=== PATIENT | male | born 1945 | race Caucasian/White ===

== ENCOUNTER 2017-12-21 12:50 | Emergency (ER) | payer MEDICARE ==
--- OUTSIDE RECORDS SUMMARY | 2017-12-21 13:07 | XMS REPORT ---
:1945 External Reference #:[id number] Author Organization [facility] Address [address], [address] [place] [address] Phone [phone] Care Team Providers Name Role Phone Mary Yuan NP Care Team Information Healthcare Consulting Manager Unavailable Mary Yuan, RENTAL CLERK Primary Care Physician Unavailable Payers Type Date Identification Numbers Payment Provider Subscriber Medicare Primary Policy Number: [id number] Medicare David Suh PayID: [id number] [address] [place] [address] Medicaid Policy Number: [id number] Medicaid David Suh PayID: [id number] [address] [place] [address] Problems Date Description Provider Status Onset: 01/11/2016 Schizophrenia Mary Yuan FNP Active Note: Document: 12/30/15 - Consult Mental Health Onset: 07/02/2016 Mixed hyperlipidemia Gregorio Hartley MD Active Onset: 02/22/2016 Hyperglycemia Mary Yuan FNP Active Note: A1C 6.2 02/2016 Onset: 12/31/2016 Actinic keratosis Mary Yuan FNP Active Note: Document: 01/16/17 - Consult Dermatology Onset: 12/31/2016 Seborrheic dermatitis Mary Yuan FNP Active Note: Document: 01/16/17 - Consult Dermatology Onset: 12/31/2016 Chronic ischemic heart disease Mary Yuan FNP Active Onset: 06/25/2016 Calculus of bile duct with Ethan Raymundo MD,FACS Resolved obstruction Resolved: 06/07/2017 Onset: 06/25/2016 Gallstone Ethan Raymundo MD,FACS Resolved Resolved: 06/07/2017 Onset: 07/18/2016 Gallbladder and bile duct calculi Ethan Raymundo MD,FACS Resolved Resolved: 06/07/2017 Family History Date Family Member(s) Problem(s) Comments Father due to Colon Cancer () - diagnosed age 88 Mother Heart Disease Mother Kidney Cancer Maternal Grandfather Stomach Cancer Social History Type Date Description Comments Marital Status Lives With Lives in retirement Home Environment Lives In Adult Home [place] Diet Patient follows no dietary no concentrated sweets restrictions Work Status Retired ETOH Use Denies alcohol use Smoking Patient denies history of smoking Recreational Drug Use Denies Drug Use Allergies, Adverse Reactions, Alerts Date Description Reaction Status Severity Comments 11/16/2015 NKDA active Medications Medication Date Status Form Strength Qnty SIG Indications Ordering Provider Clotrimazole 05/13/ Active Cream 1% 60uni apply to the 2017 ts toes of both Jenniferl feet twice a eigh, [employer]AY PAINTING MACHINE OPERATOR day, being sure to rub inbetween and under toes. Cerovite Senior 01/18/ Active Tablets 90tab Take 1 Cl2016 s Tablet By Jenniferl Mouth Daily eigh, [employer] MACHINE OPERATOR Aspirin Adult 09/25/ Active Tablets 81mg 90tab 1 by mouth R94.30 Clune, Low Dose 2017 s every day Jenniferl eigh, [employer]ING MACHINE OPERATOR Trazodone HCL 12/29/ Active Tablets 50mg take one Unknown 2015 tablet by mouth every day 1 hour before bedtime *as per Dr. Velasco's last note Tylenol Extra 12/27/ Active Tablets 500mg 50tab 2 tabs by Clvaughn, Strength 2016 s mouth every Jenniferl 4 hours as eigh, [employer] MACHINE OPERATOR needed for back pain Clozapine / Active Tablets 100mg 60tab 2 tabs by Dennis 0000 s mouth every MD Celine night at bedtime Escitalopram / Active Tablets 5mg 1 tab by Unknown Oxalate 0000 mouth every Docusate Sodium / Active Capsules 100mg 60cap 2 by mouth Clune, 0000 s every night Jenniferl at bedtime eigh, [employer] MACHINE OPERATOR Ziprasidone HCL / Active Capsules 20mg 1 cap by Unknown 0000 mouth twice a day Bisacodyl Ec / Active Tablets DR 5mg 30tab 1 tab by Clune, 0000 s mouth every Jenniferl night at eigh, [facility] bedtime Vesicare / Active Tablets 5mg 90tab 1 by mouth Clune, 0000 s every day Jenniferl eigh, [employer] MACHINE OPERATOR Simvastatin / Active Tablets 40mg 30tab 1 by mouth Clune, 0000 s every day Jenniferl eigh, [employer] MACHINE OPERATOR Pantoprazole / Active Tablets DR 20mg 7tabs 1 By Mouth Clune, Sodium 0000 Every Day Jenniferl *In Place Of eigh, [employer] PA[employer]ING MACHINE OPERATOR 40 MG - Decreasing To Possibly Discontinue Amoxicillin/Cla 10/15/ Hx Tablets 500-125mg 20tab one by mouth J18.9 Clvaughn vulanate 2018 - s twice a day Jenniferl Potassium 10/25/ x 10 days eigh, [facility] 2018 Pantoprazole 09/04/ Hx Tablets DR 20mg 30tab 1 by mouth Clune, Sodium 2018 - s every day Jenniferl 10/07/ *in place of eigh, [facility] 2018 40 mg - decreasing to possibly discontinue Ketoconazole 06/14/ Hx Cream 2% [facility]uni [facility], [facility] - [facility] areas of eigh, [facility] 2018 abdomen twice daily Econazole 06/03/ Hx Cream 1% 90gm apply thin L30.9 Clvaughn, Nitrate 2018 - layer twice Jenniferl 06/14/ daily to eigh, [facility] 2018 rash on abdomen Compression 09/25/ Hx 2unit 20-30mmhg. R60.9 Clune, Stockings 2017 - s apply Jenniferl 12/19/ compression eigh, [facility] 2018 stockings daily, remove in the evening. Ciclopirox 09/16/ Hx Solution 8% podiatry Clune, 2017 - Jenniferl 06/03/ eigh, [employer] M[employer]INE OPERATOR 2018 Furosemide 09/04/ Hx Tablets 20mg 90tab 1 tab by R60.9 Meghan 2017 - s mouth in the , Kedar 10/07/ morning Alanis Leavitt, 2018 FACC Potassium 09/04/ Hx Tablets ER 10Meq 90tab 1 by mouth R60.9 Meghan Chloride Julieta 2017 - s every day , Kedar ER 10/07/ Alanis Leavitt, 2018 FAC Pantoprazole 07/28/ Hx Tablets DR 40mg 30tab 1 by mouth Kwabena Sodium 2017 - s every day Jenniferl 09/04/ mdd 1 eigh, [employer] OPERATOR 2018 Amoxicillin/Cla 05/20/ Hx Tablets 875-125mg 10tab Every 12 Unknown vulanate 2017 - s Hours x 5 Potassium 05/25/ 2017 Triamcinolone 05/17/ Hx Cream 0.1% 60gm apply to RT L30.9 Kwabena Acetonide 2017 - abdomen Jenniferl 11/25/ twice a day eigh, [employer] OPERATOR 2018 for 10 days Multivitamin 03/26/ Hx Tablets 90tab 1 by mouth R63.4 Kwabena, Adult 2016 - s daily Jenniferl eigh, [employer] MACHINE OPERATOR 2018 Mucinex 03/09/ Hx Tablets ER 600mg 20tab one tab by R63.4 Kwabena, 2016 12HR s mouth twice Jenniferl a day (for eigh, [employer] PA[employer]ING MACHINE OPERATOR phlegm) use x 10 days Keflex 02/01/ Hx Capsules 500mg 20cap one capsules L03.116 Kwabena, 2016 - s by mouth Jenniferl 02/16/ every 12 eigh, [employer] MACHINE OPERATOR 2016 hours x 10 days Tylenol Extra 11/23/ Hx Tablets 500mg 50tab 2 tabs by M54.9 Kwabena, Strength 2016 - s mouth every Jenniferl 12/27/ 4 hours as eigh, [employer] MACHINE OPERATOR 2016 needed for back pain Benztropine / Hx Tablets 1mg 60tab 1 by mouth Kwabena, Mesylate 0000 - s twice a day Jenniferl eigh, [employer] MACHINE OPERATOR 2016 Ziprasidone HCL / Hx Capsules 20mg 60cap 1 cap by Clune, 0000 - s mouth twice Jenniferl 01/14/ a day eigh, [employer] MACHINE OPERATOR 2016 Namenda XR / Hx Caps ER 21mg 30cap 1 cap by Clune, 0000 - 24HR s mouth every Jenniferl 02/07/ day eigh, [employer] MACHINE OPERATOR 2016 Trazodone HCL / Hx Tablets 100mg 30tab 1 by mouth Clune, 0000 - s at bedtime Jenniferl , [employer] MACHINE OPERATOR 2016 Hydrocodone-Jabari / Hx Tablets 5-325mg A/D prn Unknown taminophen - 2017 Naftin / Hx Cream 2% podiatry Unknown 2017 Immunizations CPT Code Status Date Vaccine Lot # [id number] Given 06/03/2017 Pneumovax Injection [id number] 82110 Given 12/31/2016 Pneumococcal Conjugate Vaccine 13 Valent For [id number] Intramuscular Use 80304 Given 12/31/2016 Influenza Vaccine Split Virus Preservative Free Im [id number] Use Q2038 Given 12/28/2015 Influenza Vaccine (Fluzone) Age 3 And Older [id number] Vital Signs Date Vital Result Comment 12/19/2017 BP Systolic Sitting Left Arm 147 mmHg BP Diastolic Sitting Left Arm 92 mmHg Heart Rate 52 /min Respiratory Rate 18 /min Height 65.5 inches 5'5.50" Weight 193.00 lb BMI (Body Mass Index) 31.6 kg/m2 BSA (Body Surface Area) 1.96 m2 [place] body weight in kilograms 63 O2 % BldC Oximetry 97 % 11/25/2017 BP Systolic 118 mmHg BP Diastolic 72 mmHg Body Temperature 98.8 F Heart Rate 80 /min Respiratory Rate 18 /min Height 65.5 inches 5'5.50" Weight 190.00 lb BMI (Body Mass Index) 31.1 kg/m2 BSA (Body Surface Area) 1.95 m2 [place] body weight in kilograms 63 11/05/2017 BP Systolic Sitting Left Arm 112 mmHg BP Diastolic Sitting Left Arm 66 mmHg Heart Rate 72 /min Respiratory Rate 18 /min Height 65.5 inches 5'5.50" Weight 189.00 lb BMI (Body Mass Index) 31.0 kg/m2 BSA (Body Surface Area) 1.94 m2 [place] body weight in kilograms 63 10/15/2017 BP Systolic 98 mmHg BP Diastolic 58 mmHg Body Temperature 100.0 F Heart Rate 88 /min Respiratory Rate 20 /min Height 65.5 inches 5'5.50" Weight 198.00 lb BMI (Body Mass Index) 32.4 kg/m2 BSA (Body Surface Area) 1.98 m2 [place] body weight in kilograms 63 O2 % BldC Oximetry 91 % 10/07/2017 BP Systolic 116 mmHg BP Diastolic 68 mmHg Body Temperature 97.6 F Heart Rate 83 /min Respiratory Rate 20 /min Height 65.5 inches 5'5.50" Weight 194.00 lb BMI (Body Mass Index) 31.8 kg/m2 BSA (Body Surface Area) 1.96 m2 [place] body weight in kilograms 63 O2 % BldC Oximetry 95 % 09/04/2017 BP Systolic Sitting Left Arm 118 mmHg BP Diastolic Sitting Left Arm 76 mmHg Heart Rate 70 /min Respiratory Rate 18 /min Height 65.5 inches 5'5.50" Weight 191.00 lb BMI (Body Mass Index) 31.3 kg/m2 BSA (Body Surface Area) 1.95 m2 [place] body weight in kilograms 63 08/13/2017 BP Systolic Sitting Left Arm 114 mmHg BP Diastolic Sitting Left Arm 62 mmHg Heart Rate 59 /min Respiratory Rate 16 /min Height 65.5 inches 5'5.50" Weight 189.00 lb BMI (Body Mass Index) 31.0 kg/m2 BSA (Body Surface Area) 1.94 m2 [place] body weight in kilograms 63 06/03/2017 BP Systolic Sitting Left Arm 124 mmHg BP Diastolic Sitting Left Arm 72 mmHg Heart Rate 80 /min Respiratory Rate 18 /min Height 65.5 inches 5'5.50" Weight 190.00 lb BMI (Body Mass Index) 31.1 kg/m2 BSA (Body Surface Area) 1.95 m2 [place] body weight in kilograms 63 02/12/2017 BP Systolic Sitting Left Arm 124 mmHg BP Diastolic Sitting Left Arm 68 mmHg Heart Rate 72 /min Respiratory Rate 16 /min Height 65.5 inches 5'5.50" Weight 186.00 lb BMI (Body Mass Index) 30.5 kg/m2 BSA (Body Surface Area) 1.93 m2 [place] body weight in kilograms 63 12/31/2016 BP Systolic Sitting Left Arm 118 mmHg BP Diastolic Sitting Left Arm 72 mmHg Body Temperature 97.7 F Heart Rate 80 /min Respiratory Rate 18 /min Height 65.5 inches 5'5.50" Weight 191.00 lb BMI (Body Mass Index) 31.3 kg/m2 BSA (Body Surface Area) 1.95 m2 [place] body weight in kilograms 63 10/22/2016 BP Systolic Sitting Left Arm 126 mmHg BP Diastolic Sitting Left Arm 66 mmHg Heart Rate 56 /min Respiratory Rate 18 /min Height 65.5 inches 5'5.50" [place] body weight in kilograms 63 09/25/2016 BP Systolic Sitting Right Arm 108 mmHg BP Diastolic Sitting Right Arm 58 mmHg Heart Rate 55 /min Respiratory Rate 16 /min Height 65.5 inches 5'5.50" Weight 183.00 lb BMI (Body Mass Index) 30.0 kg/m2 BSA (Body Surface Area) 1.92 m2 [place] body weight in kilograms 63 09/11/2016 BP Systolic Sitting Left Arm 110 mmHg BP Diastolic Sitting Left Arm 62 mmHg Heart Rate 62 /min Respiratory Rate 16 /min Height 65.5 inches 5'5.50" Weight 178.00 lb BMI (Body Mass Index) 29.2 kg/m2 BSA (Body Surface Area) 1.89 m2 [place] body weight in kilograms 63 09/04/2016 BP Systolic Sitting Left Arm 120 mmHg BP Diastolic Sitting Left Arm 62 mmHg Heart Rate 56 /min Respiratory Rate 16 /min Height 65.5 inches 5'5.50" Weight 184.00 lb BMI (Body Mass Index) 30.2 kg/m2 BSA (Body Surface Area) 1.92 m2 [place] body weight in kilograms 63 08/27/2016 BP Systolic Sitting Left Arm 122 mmHg BP Diastolic Sitting Left Arm 74 mmHg Heart Rate 70 /min Respiratory Rate 18 /min Height 65.5 inches 5'5.50" Weight 177.00 lb BMI (Body Mass Index) 29.0 kg/m2 BSA (Body Surface Area) 1.89 m2 [place] body weight in kilograms 63 07/18/2016 BP Systolic Sitting Left Arm 118 mmHg BP Diastolic Sitting Left Arm 776 mmHg Body Temperature 97.6 F Heart Rate 80 /min Respiratory Rate 18 /min Height 65.5 inches 5'5.50"= Weight 172.12 lb BMI (Body Mass Index) 28.2 kg/m2 BSA (Body Surface Area) 1.87 m2 07/18/2016 BP Systolic 122 mmHg BP Diastolic 78 mmHg Height 65.5 inches 5'5.50"= Weight 177.00 lb BMI (Body Mass Index) 29.0 kg/m2 BSA (Body Surface Area) 1.89 m2 07/02/2016 BP Systolic Sitting Left Arm 114 mmHg BP Diastolic Sitting Left Arm 66 mmHg Heart Rate 55 /min Respiratory Rate 18 /min Height 65.5 inches 5'5.50"= Weight 177.00 lb BMI (Body Mass Index) 29.0 kg/m2 BSA (Body Surface Area) 1.89 m2 06/29/2016 BP Systolic Sitting Left Arm 120 mmHg BP Diastolic Sitting Left Arm 74 mmHg Heart Rate 72 /min Respiratory Rate 20 /min Height 65.5 inches = Weight 176.00 lb BMI (Body Mass Index) 28.8 kg/m2 BSA (Body Surface Area) 1.88 m2 [place] body weight in kilograms 63 06/25/2016 BP Systolic 110 mmHg BP Diastolic 70 mmHg Body Temperature 97.3 F Height 65.5 inches 5'5.50" Weight 174.00 lb BMI (Body Mass Index) 28.5 kg/m2 BSA (Body Surface Area) 1.88 m2 05/29/2016 BP Systolic Sitting Left Arm 120 mmHg BP Diastolic Sitting Left Arm 78 mmHg Heart Rate 63 /min Respiratory Rate 16 /min Height 65.5 inches 5'5.50" Weight 171.00 lb BMI (Body Mass Index) 28.0 kg/m2 BSA (Body Surface Area) 1.86 m2 05/17/2016 BP Systolic Sitting Left Arm 118 mmHg BP Diastolic Sitting Left Arm 70 mmHg Heart Rate 84 /min Respiratory Rate 18 /min Height 65.5 inches 5'5.50" Weight 177.00 lb BMI (Body Mass Index) 29.0 kg/m2 BSA (Body Surface Area) 1.89 m2 [place] body weight in kilograms 63 04/19/2016 BP Systolic Sitting Left Arm 118 mmHg BP Diastolic Sitting Left Arm 64 mmHg Heart Rate 79 /min Respiratory Rate 16 /min Height 65.5 inches 5'5.50" Weight 181.00 lb BMI (Body Mass Index) 29.7 kg/m2 BSA (Body Surface Area) 1.91 m2 04/16/2016 BP Systolic Sitting Left Arm 128 mmHg BP Diastolic Sitting Left Arm 70 mmHg Heart Rate 80 /min Respiratory Rate 18 /min Height 65.5 inches 5'5.50" Weight 183.00 lb BMI (Body Mass Index) 30.0 kg/m2 BSA (Body Surface Area) 1.92 m2 03/26/2016 BP Systolic 104 mmHg BP Diastolic 64 mmHg Body Temperature 97.5 F Heart Rate 86 /min Respiratory Rate 20 /min Height 65.5 inches 5'5.50" Weight 182.00 lb BMI (Body Mass Index) 29.8 kg/m2 BSA (Body Surface Area) 1.91 m2 [place] body weight in kilograms 63 O2 % BldC Oximetry 95 % 03/09/2016 BP Systolic Sitting Left Arm 124 mmHg BP Diastolic Sitting Left Arm 70 mmHg Body Temperature 97.7 F Height 65.5 inches 5'5.50" Weight 196.00 lb BMI (Body Mass Index) 32.1 kg/m2 BSA (Body Surface Area) 1.97 m2 [place] body weight in kilograms 63 02/08/2016 BP Systolic Sitting Left Arm 126 mmHg BP Diastolic Sitting Left Arm 74 mmHg Heart Rate 80 /min Respiratory Rate 18 /min Height 65.5 inches 5'5.50" Weight 198.00 lb BMI (Body Mass Index) 32.4 kg/m2 BSA (Body Surface Area) 1.98 m2 02/02/2016 BP Systolic Sitting Left Arm 118 mmHg BP Diastolic Sitting Left Arm 72 mmHg Body Temperature 97.4 F Heart Rate 72 /min Respiratory Rate 18 /min Height 65.5 inches 5'5.50" Weight 195.00 lb BMI (Body Mass Index) 32.0 kg/m2 BSA (Body Surface Area) 1.97 m2 11/24/2015 BP Systolic Sitting Left Arm 124 mmHg BP Diastolic Sitting Left Arm 72 mmHg Heart Rate 76 /min Respiratory Rate 18 /min Height 65.5 inches 5'5.50" Weight 187.00 lb BMI (Body Mass Index) 30.6 kg/m2 BSA (Body Surface Area) 1.93 m2 [place] body weight in kilograms 63 11/16/2015 BP Systolic Sitting Left Arm 134 mmHg BP Diastolic Sitting Left Arm 74 mmHg Body Temperature 98.0 F Heart Rate 60 /min Respiratory Rate 18 /min Height 65.5 inches 5'5.50" Weight 188.25 lb BMI (Body Mass Index) 30.8 kg/m2 BSA (Body Surface Area) 1.94 m2 [place] body weight in kilograms 63 Results Test Date Test Result H/L Range Note CBC 11/16/2017 White Blood Count 5.8 K/uL 3.4-10.5 1 Red Blood Count 3.95 M/uL Low 4.20-5.80 1 Hemoglobin 11.5 gm/dL Low 12.8-17.0 1 Hematocrit 36.4 % Low 38.0-48.0 1 Mean Cell Volume 92.2 fl 80.0-96.0 1 Mean Corpuscular HGB 29.1 pg 27.0-33.0 1 Mean Corpuscular HGB Conc 31.6 g/dL Low 31.7-36.0 1 Platelet Count 134 K/uL Low 155-360 1 Red Cell Distri Width %CV 12.8 % 11.6-15.8 1 Mean Platelet Volume 10.5 fL 6.6-10.6 1 Basic Metabolic Panel 11/16/2017 Glucose 106 mg/dL 74-106 1 BUN 9 mg/dL 7-18 1 Creatinine 1.0 mg/dL 0.6-1.3 1 Glom Filtration Rate, Estimate >60 mL/min >60 1 If >60 mL/min >60 1, 2 BUN/Creat 9.0 ratio 1 Sodium 146 mmol/L High 136-145 1 Potassium 4.0 mmol/L 3.5-5.1 1 Chloride 110 mmol/L High 98-107 1 Carbon Dioxide 32 mmol/L 21-32 1 Anion Gap 4 mEq/L Low 8-16 1 Calcium 8.4 mg/dL Low 8.5-10.1 1 Blood Culture 11/15/2017 Blood Culture Aerobic NO GROWTH: FINAL <SEE NOTE> 1, 3 Blood Culture Anaerobic NO GROWTH: FINAL <SEE NOTE> 1, 4 Blood Culture 11/15/2017 Blood Culture Aerobic NO GROWTH: FINAL <SEE NOTE> 1, 5 Blood Culture Anaerobic NO GROWTH: FINAL <SEE NOTE> 1, 6 CBS W/Automated Diff 11/15/2017 White Blood Count 6.9 K/uL 3.4-10.5 7 Red Blood Count 4.28 M/uL 4.20-5.80 7 Hemoglobin 12.6 gm/dL Low 12.8-17.0 7 Hematocrit 38.2 % 38.0-48.0 7 Mean Cell Volume 89.3 fl 80.0-96.0 7 Mean Corpuscular HGB 29.4 pg 27.0-33.0 7 Mean Corpuscular HGB Conc 33.0 g/dL 31.7-36.0 7 Platelet Count 144 K/uL Low 155-360 7 Red Cell Distri Width SD 40.3 fl 36-51 7 Red Cell Distri Width %CV 12.8 % 11.6-15.8 7 Mean Platelet Volume 10.2 fL 6.6-10.6 7 Neut% 74.3 % High 33.0-73.0 7 Lymph % 18.9 % Low 20.0-42.0 7 [place] % 5.5 % 0.0-10.0 7 Eo% 1.2 % 0.0-6.6 7 Bas% 0.1 % 0.0-1.1 7 Neut# 5.11 K/uL 1.8-7.0 7 Lymph # 1.30 K/uL 1.0-4.0 7 [place] # 0.38 K/uL 0.0-0.8 7 Eos # 0.08 K/uL 0.0-0.5 7 Baso # 0.01 K/uL 0.0-0.1 7 Ua RFX Micro & Culture II 11/15/2017 Urine Color YELLOW Yellow 7 Urine Clarity CLEAR Clear 7 Urine Glucose - Dipstick NEGATIVE mg/dL Negative 7 Urine Bilirubin - Dipstick NEGATIVE Negative 7 Urine Ketone NEGATIVE mg/dL Negative 7 Urine Specific [place] 1.010 1.010-1.030 7 Urine Blood NEGATIVE Negative 7 Urine PH 7.0 6.5-7.5 7 Urine Protein - Dipstick NEGATIVE mg/dL Negative 7 Urine Urobilinogen - Dipstick 0.2 E.U./dL 0.2-1.0 7 Urine Nitrite - Dipstick NEGATIVE Negative 7 Urine Leuk Esterase NEGATIVE Negative 7 Source: URINE, CLEAN CAT <SEE NOTE> 7, 8 CBS W/Automated Diff 11/14/2017 White Blood Count 6.3 K/uL 3.4-10.5 9 Red Blood Count 4.33 M/uL 4.20-5.80 9 Hemoglobin 12.8 gm/dL 12.8-17.0 9 Hematocrit 39.0 % 38.0-48.0 9 Mean Cell Volume 90.1 fl 80.0-96.0 9 Mean Corpuscular HGB 29.6 pg 27.0-33.0 9 Mean Corpuscular HGB Conc 32.8 g/dL 31.7-36.0 9 Platelet Count 132 K/uL Low 155-360 9 Red Cell Distri Width SD 41.0 fl 36-51 9 Red Cell Distri Width %CV 12.7 % 11.6-15.8 9 Mean Platelet Volume 11.1 fL High 6.6-10.6 9 Neut% 72.2 % 33.0-73.0 9 Lymph % 20.9 % 20.0-42.0 9 [place] % 4.9 % 0.0-10.0 9 Eo% 1.8 % 0.0-6.6 9 Bas% 0.2 % 0.0-1.1 9 Neut# 4.54 K/uL 1.8-7.0 9 Lymph # 1.31 K/uL 1.0-4.0 9 [place] # 0.31 K/uL 0.0-0.8 9 Eos # 0.11 K/uL 0.0-0.5 9 Baso # 0.01 K/uL 0.0-0.1 9 Glycohemoglobin A1c 11/05/2017 Glycohemoglobin (A1c) 6.1 % 4.2-6.3 10, 11 eAG 128 mg/dL 10 Laboratory test finding 07/05/2017 Troponin-I < 0.015 ng/mL 12, 13 Laboratory test finding 07/05/2017 Magnesium 1.9 mg/dL 1.8-2.4 12, 14 Laboratory test finding 07/05/2017 NT-proBNP 166.0 pg/mL High <125 12, 15 Comprehensive Metabolic Panel 07/05/2017 Glucose 98 mg/dL 74-106 12 BUN 14 mg/dL 7-18 12 Creatinine 1.1 mg/dL 0.6-1.3 12 Glom Filtration Rate, Estimate >60 mL/min >60 12 If >60 mL/min >60 12, 16 BUN/Creat 12.7 ratio 12 Sodium 143 mmol/L 136-145 12 Potassium 4.1 mmol/L 3.5-5.1 12 Chloride 104 mmol/L 98-107 12 Carbon Dioxide 34 mmol/L High 21-32 12 Anion Gap 5 mEq/L Low 8-16 12 Calcium 8.9 mg/dL 8.5-10.1 12 Total Protein 6.3 g/dL Low 6.4-8.2 12 Albumin 3.3 g/dL Low 3.4-5.0 12 Globulin 3.0 g/dL 1.9-4.3 12 Alb/Glob 1.1 ratio 12 Bilirubin,Total 0.2 mg/dL 0.2-1.0 12 Sgot/Ast 37 U/L 15-37 12 SGPT/Alt 57 U/L 12-78 12 Alkaline Phosphatase 173 U/L High 45-117 12 Laboratory test finding 07/05/2017 CK 102 U/L 39-308 12 Troponin-I < 0.015 ng/mL 12, 17 CBS W/Automated Diff 07/05/2017 White Blood Count 4.6 K/uL 3.4-10.5 12 Red Blood Count 4.05 M/uL Low 4.20-5.80 12 Hemoglobin 12.1 gm/dL Low 12.8-17.0 12 Hematocrit 36.5 % Low 38.0-48.0 12 Mean Cell Volume 90.1 fl 80.0-96.0 12 Mean Corpuscular HGB 29.9 pg 27.0-33.0 12 Mean Corpuscular HGB Conc 33.2 g/dL 31.7-36.0 12 Platelet Count 197 K/uL 155-360 12 Red Cell Distri Width SD 39.3 fl 36-51 12 Red Cell Distri Width %CV 12.4 % 11.6-15.8 12 Mean Platelet Volume 10.4 fL 6.6-10.6 12 Neut% 57.3 % 33.0-73.0 12 Lymph % 34.8 % 20.0-42.0 12 [place] % 5.8 % 0.0-10.0 12 Eo% 1.9 % 0.0-6.6 12 Bas% 0.2 % 0.0-1.1 12 Neut# 2.65 K/uL 1.8-7.0 12 Lymph # 1.61 K/uL 1.0-4.0 12 [place] # 0.27 K/uL 0.0-0.8 12 Eos # 0.09 K/uL 0.0-0.5 12 Baso # 0.01 K/uL 0.0-0.1 12 Laboratory test finding 07/05/2017 Slide Review (SEE NOTE) 12, 18 Aot Request 07/05/2017 Aot Request Test(s) added 12, 19 Tests to be added: magnesium, pleas <SEE NOTE> 12, 20 LDL Cholesterol Profile 06/03/2017 Cholesterol 152 mg/dL <200 21, 22 Triglycerides 256 mg/dL High <150 21, 23 HDL Cholesterol 49 mg/dL >40 21, 24 LDL-Cholesterol 52 mg/dL < 100 21, 25 Comprehensive Metabolic Panel 06/03/2017 Glucose 104 mg/dL 74-106 21 BUN 16 mg/dL 7-18 21 Creatinine 1.1 mg/dL 0.6-1.3 21 Glom Filtration Rate, Estimate >60 mL/min >60 21 If >60 mL/min >60 21, 26 BUN/Creat 14.5 ratio 21 Sodium 141 mmol/L 136-145 21 Potassium 4.2 mmol/L 3.5-5.1 21 Chloride 108 mmol/L High 98-107 21 Carbon Dioxide 30 mmol/L 21-32 21 Anion Gap 3 mEq/L Low 8-16 21 Calcium 8.9 mg/dL 8.5-10.1 21 Total Protein 6.5 g/dL 6.4-8.2 21 Albumin 3.7 g/dL 3.4-5.0 21 Globulin 2.8 g/dL 1.9-4.3 21 Alb/Glob 1.3 ratio 21 Bilirubin,Total 0.3 mg/dL 0.2-1.0 21 Sgot/Ast 43 U/L High 15-37 21 SGPT/Alt 50 U/L 12-78 21 Alkaline Phosphatase 130 U/L High 45-117 21 CBS W/Automated Diff 06/03/2017 White Blood Count 6.7 K/uL 3.4-10.5 21 Red Blood Count 4.57 M/uL 4.20-5.80 21 Hemoglobin 13.5 gm/dL 12.8-17.0 21 Hematocrit 40.6 % 38.0-48.0 21 Mean Cell Volume 88.8 fl 80.0-96.0 21 Mean Corpuscular HGB 29.5 pg 27.0-33.0 21 Mean Corpuscular HGB Conc 33.3 g/dL 31.7-36.0 21 Platelet Count 175 K/uL 155-360 21 Red Cell Distri Width SD 40.9 fl 36-51 21 Red Cell Distri Width %CV 12.9 % 11.6-15.8 21 Mean Platelet Volume 11.1 fL High 6.6-10.6 21 Neut% 67.0 % 33.0-73.0 21 Lymph % 25.1 % 20.0-42.0 21 [place] % 6.3 % 0.0-10.0 21 Eo% 1.3 % 0.0-6.6 21 Bas% 0.3 % 0.0-1.1 21 Neut# 4.50 K/uL 1.8-7.0 21 Lymph # 1.69 K/uL 1.0-4.0 21 [place] # 0.42 K/uL 0.0-0.8 21 Eos # 0.09 K/uL 0.0-0.5 21 Baso # 0.02 K/uL 0.0-0.1 21 Glycohemoglobin A1c 06/03/2017 Glycohemoglobin (A1c) 6.1 % 4.2-6.3 21, 27 eAG 128 mg/dL 21 Laboratory test finding 06/03/2017 Thyroid Stim Hormone 1.31 uIU/mL 0.30- 4.20 21 Basic Metabolic Panel 02/12/2017 Glucose 109 mg/dL High 74-106 28 BUN 17 mg/dL 7-18 28 Creatinine 1.0 mg/dL 0.6-1.3 28 Glom Filtration Rate, Estimate >60 mL/min >60 28 If >60 mL/min >60 28, 29 BUN/Creat 17.0 ratio 28 Sodium 143 mmol/L 136-145 28 Potassium 3.9 mmol/L 3.5-5.1 28 Chloride 105 mmol/L 98-107 28 Carbon Dioxide 33 mmol/L High 21-32 28 Anion Gap 5 mEq/L Low 8-16 28 Calcium 9.4 mg/dL 8.5-10.1 28 Glycohemoglobin A1c 10/24/2016 Glycohemoglobin (A1c) 5.9 % 4.2-6.3 30, 31 eAG 123 mg/dL 30 Basic Metabolic Panel 10/17/2016 Glucose 243 mg/dL High 74-106 32 BUN 19 mg/dL High 7-18 32 Creatinine 1.1 mg/dL 0.6-1.3 32 Glom Filtration Rate, Estimate >60 mL/min >60 32 If >60 mL/min >60 32, 33 BUN/Creat 17.2 ratio 32 Sodium 139 mmol/L 136-145 32 Potassium 3.5 mmol/L 3.5-5.1 32 Chloride 102 mmol/L 98-107 32 Carbon Dioxide 31 mmol/L 21-32 32 Anion Gap 6 mEq/L Low 8-16 32 Calcium 8.5 mg/dL 8.5-10.1 32 Laboratory test finding 10/17/2016 Magnesium 1.9 mg/dL 1.8-2.4 32 Basic Metabolic Panel 09/05/2016 Glucose 99 mg/dL 74-106 32 BUN 16 mg/dL 7-18 32 Creatinine 0.9 mg/dL 0.6-1.3 32 Glom Filtration Rate, Estimate >60 mL/min >60 32 If >60 mL/min >60 32, 34 BUN/Creat 17.7 ratio 32 Sodium 146 mmol/L High 136-145 32 Potassium 3.9 mmol/L 3.5-5.1 32 Chloride 108 mmol/L High 98-107 32 Carbon Dioxide 34 mmol/L High 21-32 32 Anion Gap 4 mEq/L Low 8-16 32 Calcium 9.2 mg/dL 8.5-10.1 32 Laboratory test finding 09/05/2016 Magnesium 1.8 mg/dL 1.8-2.4 32 Ua RFX Micro & Culture II 07/07/2016 Urine Color YELLOW Yellow 35 Urine Clarity CLEAR Clear 35 Urine Glucose - Dipstick NEGATIVE mg/dL Negative 35 Urine Bilirubin - Dipstick NEGATIVE Negative 35 Urine [place] NEGATIVE mg/dL Negative 35 Urine Specific [place] 1.010 1.010-1.030 35 Urine Blood NEGATIVE Negative 35 Urine PH 7.0 6.5-7.5 35 Urine Protein - Dipstick NEGATIVE mg/dL Negative 35 Urine Urobilinogen - Dipstick 2.0 E.U./dL High 0.2-1.0 35 Urine Nitrite - Dipstick NEGATIVE Negative 35 Urine Leuk Esterase NEGATIVE Negative 35 Source: URINE, CLEAN CAT <SEE NOTE> 35, 36 CBS W/Automated Diff 07/07/2016 White Blood Count 6.7 K/uL 3.4-10.5 35 Red Blood Count 4.09 M/uL Low 4.20-5.80 35 Hemoglobin 12.0 gm/dL Low 12.8-17.0 35 Hematocrit 36.7 % Low 38.0-48.0 35 Mean Cell Volume 89.7 fl 80.0-96.0 35 Mean Corpuscular HGB 29.3 pg 27.0-33.0 35 Mean Corpuscular HGB Conc 32.7 g/dL 31.7-36.0 35 Platelet Count 154 K/uL 150-400 35 Red Cell Distri Width SD 44.1 fl 36-51 35 Red Cell Distri Width %CV 13.8 % 11.6-15.8 35 Mean Platelet Volume 11.3 fL High 6.6-10.6 35 Neut% 84.0 % High 33.0-73.0 35 Lymph % 9.4 % Low 20.0-42.0 35 [place] % 6.0 % 0.0-10.0 35 Eo% 0.6 % 0.0-6.6 35 Bas% 0.0 % 0.0-1.1 35 Neut# 5.65 K/uL 1.8-7.0 35 Lymph # 0.63 K/uL Low 1.0-4.0 35 [place] # 0.40 K/uL 0.0-0.8 35 Eos # 0.04 K/uL 0.0-0.5 35 Baso # 0.00 K/uL 0.0-0.1 35 Comprehensive Metabolic Panel 07/07/2016 Glucose 192 mg/dL High 74-106 35 BUN 12 mg/dL 7-18 35 Creatinine 1.0 mg/dL 0.6-1.3 35 Glom Filtration Rate, Estimate >60 mL/min >60 35 If >60 mL/min >60 35, 37 BUN/Creat 12.0 ratio 35 Sodium 141 mmol/L 136-145 35 Potassium 3.8 mmol/L 3.5-5.1 35 Chloride 106 mmol/L 98-107 35 Carbon Dioxide 30 mmol/L 21-32 35 Anion Gap 5 mEq/L Low 8-16 35 Calcium 8.3 mg/dL Low 8.5-10.1 35 Total Protein 6.0 g/dL Low 6.4-8.2 35 Albumin 2.9 g/dL Low 3.4-5.0 35 Globulin 3.1 g/dL 1.9-4.3 35 Alb/Glob 0.9 ratio 35 Bilirubin,Total 0.6 mg/dL 0.2-1.0 35 Sgot/Ast 27 U/L 15-37 35 SGPT/Alt 43 U/L 12-78 35 Alkaline Phosphatase 149 U/L High 45-117 35 CBC 07/05/2016 White Blood Count 9.3 K/uL 3.4-10.5 38 Red Blood Count 4.20 M/uL 4.20-5.80 38 Hemoglobin 12.2 gm/dL Low 12.8-17.0 38 Hematocrit 37.4 % Low 38.0-48.0 38 Mean Cell Volume 89.0 fl 80.0-96.0 38 Mean Corpuscular HGB 29.0 pg 27.0-33.0 38 Mean Corpuscular HGB Conc 32.6 g/dL 31.7-36.0 38 Platelet Count 176 K/uL 150-400 38 Red Cell Distri Width %CV 13.8 % 11.6-15.8 38 Mean Platelet Volume 11.2 fL High 6.6-10.6 38 CBS W/Automated Diff 07/05/2016 Red Cell Distri Width SD 43.6 fl 36-51 38 Neut% 85.2 % High 33.0-73.0 38 Lymph % 10.2 % Low 20.0-42.0 38 [place] % 4.5 % 0.0-10.0 38 Eo% 0.1 % 0.0-6.6 38 Bas% 0.0 % 0.0-1.1 38 Neut# 7.90 K/uL High 1.8-7.0 38 Lymph # 0.95 K/uL Low 1.0-4.0 38 [place] # 0.42 K/uL 0.0-0.8 38 Eos # 0.01 K/uL 0.0-0.5 38 Baso # 0.00 K/uL 0.0-0.1 38 Comprehensive Metabolic Panel 07/05/2016 Glucose 123 mg/dL High 74-106 38 BUN 12 mg/dL 7-18 38 Creatinine 1.1 mg/dL 0.6-1.3 38 Glom Filtration Rate, Estimate >60 mL/min >60 38 If >60 mL/min >60 38, 39 BUN/Creat 10.9 ratio 38 Sodium 144 mmol/L 136-145 38 Potassium 4.4 mmol/L 3.5-5.1 38 Chloride 109 mmol/L High 98-107 38 Carbon Dioxide 27 mmol/L 21-32 38 Anion Gap 8 mEq/L 8-16 38 Calcium 8.1 mg/dL Low 8.5-10.1 38 Total Protein 5.4 g/dL Low 6.4-8.2 38 Albumin 2.9 g/dL Low 3.4-5.0 38 Globulin 2.5 g/dL 1.9-4.3 38 Alb/Glob 1.2 ratio 38 Bilirubin,Total 0.6 mg/dL 0.2-1.0 38 Sgot/Ast 44 U/L High 15-37 38 SGPT/Alt 46 U/L 12-78 38 Alkaline Phosphatase 121 U/L High 45-117 38 CBC 07/04/2016 White Blood Count 7.3 K/uL 3.4-10.5 38 Red Blood Count 4.33 M/uL 4.20-5.80 38 Hemoglobin 12.6 gm/dL Low 12.8-17.0 38 Hematocrit 38.6 % 38.0-48.0 38 Mean Cell Volume 89.1 fl 80.0-96.0 38 Mean Corpuscular HGB 29.1 pg 27.0-33.0 38 Mean Corpuscular HGB Conc 32.6 g/dL 31.7-36.0 38 Platelet Count 178 K/uL 150-400 38 Red Cell Distri Width %CV 13.6 % 11.6-15.8 38 Mean Platelet Volume 10.8 fL High 6.6-10.6 38 Comprehensive Metabolic Panel 07/04/2016 Glucose 138 mg/dL High 74-106 38 BUN 14 mg/dL 7-18 38 Creatinine 1.1 mg/dL 0.6-1.3 38 Glom Filtration Rate, Estimate >60 mL/min >60 38 If >60 mL/min >60 38, 40 BUN/Creat 12.7 ratio 38 Sodium 145 mmol/L 136-145 38 Potassium 4.1 mmol/L 3.5-5.1 38 Chloride 109 mmol/L High 98-107 38 Carbon Dioxide 28 mmol/L 21-32 38 Anion Gap 8 mEq/L 8-16 38 Calcium 8.3 mg/dL Low 8.5-10.1 38 Total Protein 5.9 g/dL Low 6.4-8.2 38 Albumin 3.4 g/dL 3.4-5.0 38 Globulin 2.5 g/dL 1.9-4.3 38 Alb/Glob 1.4 ratio 38 Bilirubin,Total 0.3 mg/dL 0.2-1.0 38 Sgot/Ast 27 U/L 15-37 38 SGPT/Alt 35 U/L 12-78 38 Alkaline Phosphatase 136 U/L High 45-117 38 Laboratory test 07/04/2016 C-Reactive Protein,Quant < 3.0 mg/L <3.0 38 finding Blood Culture 07/04/2016 Blood Culture Aerobic NO GROWTH: 38, 41 FINAL <SEE NOTE> Blood Culture Anaerobic NO GROWTH: FINAL <SEE NOTE> 38, 42 CBC 07/02/2016 White Blood Count 5.4 K/uL 3.4-10.5 43 Red Blood Count 4.55 M/uL 4.20-5.80 43 Hemoglobin 13.3 gm/dL 12.8-17.0 43 Hematocrit 40.5 % 38.0-48.0 43 Mean Cell Volume 89.0 fl 80.0-96.0 43 Mean Corpuscular HGB 29.2 pg 27.0-33.0 43 Mean Corpuscular HGB Conc 32.8 g/dL 31.7-36.0 43 Platelet Count 228 K/uL 150-400 43 Red Cell Distri Width %CV 13.8 % 11.6-15.8 43 Mean Platelet Volume 11.0 fL High 6.6-10.6 43 Protime 07/02/2016 Protime 13.3 seconds 12.0-14.4 43 Inr 1.0 0.9-1.1 43, 44 Laboratory test 07/02/2016 Act Partial 27.3 seconds 23.4-35.0 43, 45 finding Thrombo Time Liver Function Tests 07/02/2016 Total Protein 6.2 g/dL Low 6.4-8.2 43 Albumin 3.7 g/dL 3.4-5.0 43 Globulin 2.5 g/dL 1.9-4.3 43 Alb/Glob 1.5 ratio 43 Bilirubin,Total 0.4 mg/dL 0.2-1.0 43 Bilirubin,Direct 0.1 mg/dL 0.0-0.2 43 Bilirubin,Indirect 0.3 mg/dL 0.0-0.9 43 Sgot/Ast 17 U/L 15-37 43 SGPT/Alt 38 U/L 12-78 43 Alkaline Phosphatase 166 U/L High 45-117 43 Basic Metabolic Panel 07/02/2016 Glucose 119 mg/dL High 74-106 43 BUN 10 mg/dL 7-18 43 Creatinine 1.1 mg/dL 0.6-1.3 43 Glom Filtration Rate, Estimate >60 mL/min >60 43 If >60 mL/min >60 43, 46 BUN/Creat 9.0 ratio 43 Sodium 145 mmol/L 136-145 43 Potassium 4.1 mmol/L 3.5-5.1 43 Chloride 108 mmol/L High 98-107 43 Carbon Dioxide 30 mmol/L 21-32 43 Anion Gap 7 mEq/L Low 8-16 43 Calcium 8.7 mg/dL 8.5-10.1 43 CBS W/Automated Diff 06/21/2016 White Blood Count 4.3 K/uL 3.4-10.5 47 Red Blood Count 4.59 M/uL 4.20-5.80 47 Hemoglobin 13.2 gm/dL 12.8-17.0 47 Hematocrit 39.4 % 38.0-48.0 47 Mean Cell Volume 85.8 fl 80.0-96.0 47 Mean Corpuscular HGB 28.8 pg 27.0-33.0 47 Mean Corpuscular HGB Conc 33.5 g/dL 31.7-36.0 47 Platelet Count 147 K/uL Low 150-400 47 Red Cell Distri Width SD 41.5 fl 36-51 47 Red Cell Distri Width %CV 13.4 % 11.6-15.8 47 Mean Platelet Volume 10.5 fL 6.6-10.6 47 Neut% 57.8 % 33.0-73.0 47 Lymph % 31.8 % 20.0-42.0 47 [place] % 6.7 % 0.0-10.0 47 Eo% 3.2 % 0.0-6.6 47 Bas% 0.5 % 0.0-1.1 47 Neut# 2.51 K/uL 1.8-7.0 47 Lymph # 1.38 K/uL 1.0-4.0 47 [place] # 0.29 K/uL 0.0-0.8 47 Eos # 0.14 K/uL 0.0-0.5 47 Baso # 0.02 K/uL 0.0-0.1 47 Laboratory test finding 06/21/2016 Slide Review . 47, 48 RBC Morphology Only 06/21/2016 Poikilocytosis 0-1+ 47 Anisocytosis 0-1+ 47 Microcytosis 0-1+ 47 Elliptocytes 0-1+ 47 [place] Cells 0-1+ 47 CBC 06/15/2016 White Blood Count 5.6 K/uL 3.4-10.5 47 Red Blood Count 5.38 M/uL 4.20-5.80 47 Hemoglobin 15.4 gm/dL 12.8-17.0 47 Hematocrit 46.4 % 38.0-48.0 47 Mean Cell Volume 86.2 fl 80.0-96.0 47 Mean Corpuscular HGB 28.6 pg 27.0-33.0 47 Mean Corpuscular HGB Conc 33.2 g/dL 31.7-36.0 47 Platelet Count 191 K/uL 150-400 47 Red Cell Distri Width %CV 13.3 % 11.6-15.8 47 Mean Platelet Volume 10.7 fL High 6.6-10.6 47 Basic Metabolic Panel 06/15/2016 Glucose 98 mg/dL 74-106 47 BUN 11 mg/dL 7-18 47 Creatinine 0.9 mg/dL 0.6-1.3 47 Glom Filtration Rate, Estimate >60 mL/min >60 47 If >60 mL/min >60 47, 49 BUN/Creat 12.2 ratio 47 Sodium 141 mmol/L 136-145 47 Potassium 4.0 mmol/L 3.5-5.1 47 Chloride 103 mmol/L 98-107 47 Carbon Dioxide 31 mmol/L 21-32 47 Anion Gap 7 mEq/L Low 8-16 47 Calcium 9.2 mg/dL 8.5-10.1 47 LDL Cholesterol Profile 06/09/2016 Cholesterol 134 mg/dL <200 47, 50 Triglycerides 38 mg/dL <150 47, 51 HDL Cholesterol 79 mg/dL >40 47, 52 LDL-Cholesterol 47 mg/dL < 100 47, 53 Laboratory test 06/09/2016 Treponema Antibody Nonreactive Nonreactive 47 , 54 finding [place] Ua RFX Micro & 06/08/2016 Urine Color YELLOW Yellow 55 Culture II Urine Clarity CLEAR Clear 55 Urine Glucose - Dipstick NEGATIVE mg/dL Negative 55 Urine Bilirubin - Dipstick NEGATIVE Negative 55 Urine [place] NEGATIVE mg/dL Negative 55 Urine Specific [place] 1.015 1.010-1.030 55 Urine Blood NEGATIVE Negative 55 Urine PH 5.5 Low 6.5-7.5 55 Urine Protein - Dipstick NEGATIVE mg/dL Negative 55 Urine Urobilinogen - Dipstick 0.2 E.U./dL 0.2-1.0 55 Urine Nitrite - Dipstick NEGATIVE Negative 55 Urine Leuk Esterase NEGATIVE Negative 55 Source: URINE, CLEAN CAT <SEE NOTE> 55, 56 Drugs Of Abuse-Urine Screen 7 06/08/2016 Amphetamines (Urine) Negative 55 Barbiturates (Urine) Negative 55 Benzodiazepines (Urine) Negative 55 Cannabinoids (Urine) Negative 55 Cocaine Metabolite (Urine) Negative 55 Methadone (Urine) Negative 55 Opiates (Urine) Negative 55 Urine Cutoffs * 55, 57 CBS W/Automated Diff 06/08/2016 White Blood Count 5.5 K/uL 3.4-10.5 55 Red Blood Count 4.91 M/uL 4.20-5.80 55 Hemoglobin 14.2 gm/dL 12.8-17.0 55 Hematocrit 42.5 % 38.0-48.0 55 Mean Cell Volume 86.6 fl 80.0-96.0 55 Mean Corpuscular HGB 28.9 pg 27.0-33.0 55 Mean Corpuscular HGB Conc 33.4 g/dL 31.7-36.0 55 Platelet Count 146 K/uL Low 150-400 55 Red Cell Distri Width SD 42.2 fl 36-51 55 Red Cell Distri Width %CV 13.6 % 11.6-15.8 55 Mean Platelet Volume 11.5 fL High 6.6-10.6 55 Neut% 71.4 % 33.0-73.0 55 Lymph % 15.9 % Low 20.0-42.0 55 [place] % 9.6 % 0.0-10.0 55 Eo% 2.9 % 0.0-6.6 55 Bas% 0.2 % 0.0-1.1 55 Neut# 3.96 K/uL 1.8-7.0 55 Lymph # 0.88 K/uL Low 1.0-4.0 55 [place] # 0.53 K/uL 0.0-0.8 55 Eos # 0.16 K/uL 0.0-0.5 55 Baso # 0.01 K/uL 0.0-0.1 55 Laboratory test finding 06/08/2016 Ethyl Alcohol < 3.0 mg/dL 55 Comprehensive Metabolic Panel 06/08/2016 Glucose 98 mg/dL 74-106 55 BUN 7 mg/dL 7-18 55 Creatinine 1.0 mg/dL 0.6-1.3 55 Glom Filtration Rate, Estimate >60 mL/min >60 55 If >60 mL/min >60 55, 58 BUN/Creat 7.0 ratio 55 Sodium 143 mmol/L 136-145 55 Potassium 3.8 mmol/L 3.5-5.1 55 Chloride 106 mmol/L 98-107 55 Carbon Dioxide 31 mmol/L 21-32 55 Anion Gap 6 mEq/L Low 8-16 55 Calcium 9.1 mg/dL 8.5-10.1 55 Total Protein 6.5 g/dL 6.4-8.2 55 Albumin 3.7 g/dL 3.4-5.0 55 Globulin 2.8 g/dL 1.9-4.3 55 Alb/Glob 1.3 ratio 55 Bilirubin,Total 0.4 mg/dL 0.2-1.0 55 Sgot/Ast 30 U/L 15-37 55 SGPT/Alt 43 U/L 12-78 55 Alkaline Phosphatase 147 U/L High 45-117 55 Laboratory test finding 06/08/2016 Thyroid Stim Hormone 0.55 uIU/mL 0.30- 4.20 55 Laboratory test finding 06/05/2016 Prealbumin 18.0 mg/dL Low 20.0-40.0 Lipid Panel 06/05/2016 Cholesterol 121 mg/dL <200 59 Triglycerides 159 mg/dL High <150 60 HDL Cholesterol 48 mg/dL >40 61 LDL-Cholesterol 41 mg/dL < 100 62 Liver - Hepatic Panel 06/05/2016 Total Protein 6.5 g/dL 6.4-8.2 Albumin 3.6 g/dL 3.4-5.0 Globulin 2.9 g/dL 1.9-4.3 Alb/Glob 1.2 ratio Bilirubin,Total 0.5 mg/dL 0.2-1.0 Bilirubin,Direct 0.2 mg/dL 0.0-0.2 Bilirubin,Indirect 0.3 mg/dL 0.0-0.9 Sgot/Ast 40 U/L High 15-37 SGPT/Alt 48 U/L 12-78 Alkaline Phosphatase 129 U/L High 45-117 CBS W/Automated Diff 06/05/2016 White Blood Count 5.5 K/uL 3.4-10.5 Red Blood Count 5.03 M/uL 4.20-5.80 Hemoglobin 14.5 gm/dL 12.8-17.0 Hematocrit 43.9 % 38.0-48.0 Mean Cell Volume 87.3 fl 80.0-96.0 Mean Corpuscular HGB 28.8 pg 27.0-33.0 Mean Corpuscular HGB Conc 33.0 g/dL 31.7-36.0 Platelet Count 176 K/uL 150-400 Red Cell Distri Width SD 41.6 fl 36-51 Red Cell Distri Width %CV 13.4 % 11.6-15.8 Mean Platelet Volume 11.7 fL High 6.6-10.6 Neut% 68.3 % 33.0-73.0 Lymph % 25.7 % 20.0-42.0 [place] % 4.2 % 0.0-10.0 Eo% 1.6 % 0.0-6.6 Bas% 0.2 % 0.0-1.1 Neut# 3.74 K/uL 1.8-7.0 Lymph # 1.41 K/uL 1.0-4.0 [place] # 0.23 K/uL 0.0-0.8 Eos # 0.09 K/uL 0.0-0.5 Baso # 0.01 K/uL 0.0-0.1 Comprehensive Metabolic Panel 06/05/2016 Glucose 109 mg/dL High 74-106 BUN 12 mg/dL 7-18 Creatinine 0.9 mg/dL 0.6-1.3 Glom Filtration Rate, Estimate >60 mL/min >60 If >60 mL/min >60 63 BUN/Creat 13.3 ratio Sodium 145 mmol/L 136-145 Potassium 3.9 mmol/L 3.5-5.1 Chloride 107 mmol/L 98-107 Carbon Dioxide 33 mmol/L High 21-32 Anion Gap 5 mEq/L Low 8-16 Calcium 8.9 mg/dL 8.5-10.1 Sodium SerPl-sCnc 05/20/2016 Sodium SerPl-sCnc 146 High 136-145 WBC # Bld Auto 05/20/2016 WBC # Bld Auto 4.7 3.4-10.5 Aot Request 05/20/2016 Aot Request Test(s) added 64, 65 Tests to be added: lft 64 * Miscellaneous 05/20/2016 * Miscellaneous Test(s) added studies (set) studies (set) BUN SerPl-mCnc 05/20/2016 BUN SerPl-mCnc 12 7-18 Anion Gap SerPl-sCnc 05/20/2016 Anion Gap SerPl-sCnc 5 Low 8-16 Albumin/Glob SerPl 05/20/2016 Albumin/Glob SerPl 1.3 Albumin SerPl-mCnc 05/20/2016 Albumin SerPl-mCnc 2.9 3.4-5.0 Ast SerPl-cCnc 05/20/2016 Ast SerPl-cCnc 18 15-37 Alt SerPl-cCnc 05/20/2016 Alt SerPl-cCnc 24 12-78 Alp SerPl-cCnc 05/20/2016 Alp SerPl-cCnc 97 45-117 Basic Metabolic Panel 05/20/2016 Glucose 115 mg/dL High 74-106 64 BUN 12 mg/dL 7-18 64 Creatinine 0.8 mg/dL 0.6-1.3 64 Glom Filtration Rate, Estimate >60 mL/min >60 64 If >60 mL/min >60 64, 66 BUN/Creat 15.0 ratio 64 Sodium 146 mmol/L High 136-145 64 Potassium 3.8 mmol/L 3.5-5.1 64 Chloride 112 mmol/L High 98-107 64 Carbon Dioxide 29 mmol/L 21-32 64 Anion Gap 5 mEq/L Low 8-16 64 Calcium 8.2 mg/dL Low 8.5-10.1 64 Liver Function Tests 05/20/2016 Total Protein 5.1 g/dL Low 6.4-8.2 64 Albumin 2.9 g/dL Low 3.4-5.0 64 Globulin 2.2 g/dL 1.9-4.3 64 Alb/Glob 1.3 ratio 64 Bilirubin,Total 0.2 mg/dL 0.2-1.0 64 Bilirubin,Direct 0.1 mg/dL 0.0-0.2 64 Bilirubin,Indirect 0.1 mg/dL 0.0-0.9 64 Sgot/Ast 18 U/L 15-37 64 SGPT/Alt 24 U/L 12-78 64 Alkaline Phosphatase 97 U/L 45-117 64 CBC 05/20/2016 White Blood Count 4.7 K/uL 3.4-10.5 64 Red Blood Count 3.91 M/uL Low 4.20-5.80 64 Hemoglobin 11.4 gm/dL Low 12.8-17.0 64 Hematocrit 35.0 % Low 38.0-48.0 64 Mean Cell Volume 89.5 fl 80.0-96.0 64 Mean Corpuscular HGB 29.2 pg 27.0-33.0 64 Mean Corpuscular HGB Conc 32.6 g/dL 31.7-36.0 64 Platelet Count 157 K/uL 150-400 64 Red Cell Distri Width %CV 12.9 % 11.6-15.8 64 Mean Platelet Volume 11.3 fL High 6.6-10.6 64 Potassium SerPl-sCnc 05/20/2016 Potassium SerPl-sCnc 3.8 3.5-5.1 Platelet # Bld Auto 05/20/2016 Platelet # Bld Auto 157 150-400 PMV Bld Auto 05/20/2016 PMV Bld Auto 11.3 High 6.6-10.6 MCV RBC Auto 05/20/2016 MCV RBC Auto 89.5 80.0-96.0 MCHC RBC Auto-mCnc 05/20/2016 MCHC RBC Auto-mCnc 32.6 31.7-36.0 MCH RBC Qn Auto 05/20/2016 MCH RBC Qn Auto 29.2 27.0-33.0 Hgb Bld-mCnc 05/20/2016 Hgb Bld-mCnc 11.4 Low 12.8-17.0 Hct VFr Bld Auto 05/20/2016 Hct VFr Bld Auto 35.0 Low 38.0-48.0 Glucose SerPl-mCnc 05/20/2016 Glucose SerPl-mCnc 115 High 74-106 Globulin Ser Calc-mCnc 05/20/2016 Globulin Ser Calc-mCnc 2.2 1.9-4.3 Creat SerPl-mCnc 05/20/2016 Creat SerPl-mCnc 0.8 0.6-1.3 Chloride SerPl-sCnc 05/20/2016 Chloride SerPl-sCnc 112 High 98-107 Calcium SerPl-mCnc 05/20/2016 Calcium SerPl-mCnc 8.2 Low 8.5-10.1 Co2 SerPl-sCnc 05/20/2016 Co2 SerPl-sCnc 29 21-32 Bilirub SerPl-mCnc 05/20/2016 Bilirub SerPl-mCnc 0.2 0.2-1.0 Bilirub Indirect 05/20/2016 Bilirub Indirect 0.1 0.0-0.9 SerPl-mCnc SerPl-mCnc BUN/Creat SerPl 05/20/2016 BUN/Creat SerPl 15.0 Serum or plasma direct 05/20/2016 Serum or plasma direct 0.1 0.0-0.2 bilirubin measurement bilirubin measurement (mass (mass/volume) RDW RBC Auto-Rto 05/20/2016 RDW RBC Auto-Rto 12.9 11.6-15.8 RBC # Bld Auto 05/20/2016 RBC # Bld Auto 3.91 Low 4.20-5.80 Prot SerPl-mCnc 05/20/2016 Prot SerPl-mCnc 5.1 6.4-8.2 CBC 05/19/2016 White Blood Count 4.4 K/uL 3.4-10.5 64 Red Blood Count 4.41 M/uL 4.20-5.80 64 Hemoglobin 12.7 gm/dL Low 12.8-17.0 64 Hematocrit 38.8 % 38.0-48.0 64 Mean Cell Volume 88.0 fl 80.0-96.0 64 Mean Corpuscular HGB 28.8 pg 27.0-33.0 64 Mean Corpuscular HGB Conc 32.7 g/dL 31.7-36.0 64 Platelet Count 189 K/uL 150-400 64 Red Cell Distri Width %CV 12.8 % 11.6-15.8 64 Mean Platelet Volume 11.0 fL High 6.6-10.6 64 Basic Metabolic Panel 05/19/2016 Glucose 153 mg/dL High 74-106 64 BUN 12 mg/dL 7-18 64 Creatinine 0.8 mg/dL 0.6-1.3 64 Glom Filtration Rate, Estimate >60 mL/min >60 64 If >60 mL/min >60 64, 67 BUN/Creat 15.0 ratio 64 Sodium 144 mmol/L 136-145 64 Potassium 4.1 mmol/L 3.5-5.1 64 Chloride 110 mmol/L High 98-107 64 Carbon Dioxide 29 mmol/L 21-32 64 Anion Gap 5 mEq/L Low 8-16 64 Calcium 8.2 mg/dL Low 8.5-10.1 64 Basophils/leuk NFr Bld 05/18/2016 Basophils/leuk NFr Bld 0.2 0.0-1.1 Auto Auto Basophils # Bld Auto 05/18/2016 Basophils # Bld Auto 0.01 0.0-0.1 Comprehensive Metabolic 05/18/2016 Glucose 123 mg/dL High 74-106 68 Panel BUN 13 mg/dL 7-18 68 Creatinine 1.0 mg/dL 0.6-1.3 68 Glom Filtration Rate, Estimate >60 mL/min >60 68 If >60 mL/min >60 68, 69 BUN/Creat 13.0 ratio 68 Sodium 143 mmol/L 136-145 68 Potassium 3.9 mmol/L 3.5-5.1 68 Chloride 106 mmol/L 98-107 68 Carbon Dioxide 31 mmol/L 21-32 68 Anion Gap 6 mEq/L Low 8-16 68 Calcium 9.1 mg/dL 8.5-10.1 68 Total Protein 6.7 g/dL 6.4-8.2 68 Albumin 3.7 g/dL 3.4-5.0 68 Globulin 3.0 g/dL 1.9-4.3 68 Alb/Glob 1.2 ratio 68 Bilirubin,Total 0.4 mg/dL 0.2-1.0 68 Sgot/Ast 27 U/L 15-37 68 SGPT/Alt 31 U/L 12-78 68 Alkaline Phosphatase 137 U/L High 45-117 68 Laboratory test finding 05/18/2016 Lipase 87 U/L 73-393 68 CBS W/Automated Diff 05/18/2016 White Blood Count 5.0 K/uL 3.4-10.5 68 Red Blood Count 4.69 M/uL 4.20-5.80 68 Hemoglobin 13.7 gm/dL 12.8-17.0 68 Hematocrit 41.1 % 38.0-48.0 68 Mean Cell Volume 87.6 fl 80.0-96.0 68 Mean Corpuscular HGB 29.2 pg 27.0-33.0 68 Mean Corpuscular HGB Conc 33.3 g/dL 31.7-36.0 68 Platelet Count 174 K/uL 150-400 68 Red Cell Distri Width SD 40.8 fl 36-51 68 Red Cell Distri Width %CV 13.0 % 11.6-15.8 68 Mean Platelet Volume 10.6 fL 6.6-10.6 68 Neut% 68.2 % 33.0-73.0 68 Lymph % 24.8 % 20.0-42.0 68 [place] % 5.4 % 0.0-10.0 68 Eo% 1.4 % 0.0-6.6 68 Bas% 0.2 % 0.0-1.1 68 Neut# 3.42 K/uL 1.8-7.0 68 Lymph # 1.24 K/uL 1.0-4.0 68 [place] # 0.27 K/uL 0.0-0.8 68 Eos # 0.07 K/uL 0.0-0.5 68 Baso # 0.01 K/uL 0.0-0.1 68 Blood Culture 05/18/2016 Blood Culture Aerobic NO GROWTH: FINAL <SEE NOTE> 70, 71 Blood Culture Anaerobic NO GROWTH: FINAL <SEE NOTE> 70, 72 Blood Culture 05/18/2016 Blood Culture Aerobic NO GROWTH: FINAL <SEE NOTE> 70, 73 Blood Culture Anaerobic NO GROWTH: FINAL <SEE NOTE> 70, 74 Bacteria Bld Aerobe 05/18/2016 Bacteria Bld Aerobe No Growth Cult Cult Anaerobic blood culture 05/18/2016 Anaerobic blood culture No Growth Prothrombin time 05/18/2016 Prothrombin time 13.9 12.0-14.4 Protime 05/18/2016 Protime 13.9 seconds 12.0-14.4 70 Inr 1.1 0.9-1.1 70, 75 Eosinophil # Bld Auto 05/18/2016 Eosinophil # Bld Auto 0.07 0.0-0.5 Eosinophil/leuk NFr Bld 05/18/2016 Eosinophil/leuk NFr Bld 1.4 0.0-6.6 Auto Auto Lipase SerPl-cCnc 05/18/2016 Lipase SerPl-cCnc 87 73-393 Lymphocytes # Bld Auto 05/18/2016 Lymphocytes # Bld Auto 1.24 1.0-4.0 Lymphocytes/leuk NFr Bld 05/18/2016 Lymphocytes/leuk NFr 24.8 20.0-42.0 Auto Bld Auto Monocytes # Bld Auto 05/18/2016 Monocytes # Bld Auto 0.27 0.0-0.8 Monocytes/leuk NFr Bld 05/18/2016 Monocytes/leuk NFr Bld 5.4 0.0-10.0 Auto Auto Neutrophils # Bld Auto 05/18/2016 Neutrophils # Bld Auto 3.42 1.8-7.0 Neutrophils/leuk NFr Bld 05/18/2016 Neutrophils/leuk NFr 68.2 33.0-73.0 Auto Bld Auto RDW RBC Auto 05/18/2016 RDW RBC Auto 40.8 36-51 TSH SerPl-aCnc 05/17/2016 TSH SerPl-aCnc 1.39 0.30-4.20 Serum or plasma 05/17/2016 Serum or plasma 30 Low 31-39 triiodothyronine resin triiodothyronine resin uptake (T3R uptake (T3ru) Serum or plasma 05/17/2016 Serum or plasma 8.8 4.7-13.3 thyroxine (T4) thyroxine (T4) measurement (mass/v measurement (mass/volume) Serum or plasma 05/17/2016 Serum or plasma 2.64 Low 5.0-12.0 thyroxine (T4) free thyroxine (T4) free index index Hgb A1c MFr Bld 05/17/2016 Hgb A1c MFr Bld 5.8 4.2-6.3 Blood glucose mean value 05/17/2016 Blood glucose mean 120 measurement estimated value measurement fro estimated from glycated hemoglobin (mass/volume) Glycohemoglobin A1c 05/17/2016 Glycohemoglobin (A1c) 5.8 % 4.2-6.3 76, 77 eAG 120 mg/dL 76 Laboratory test finding 05/17/2016 Amylase 28 U/L 25-115 76 Lipase 93 U/L 73-393 76 Carbohydrate Antigen 19-9 13.0 U/mL 0-35 76, 78 Cea 1.1 ng/mL 76, 79 T7/TSH 05/17/2016 T3 Uptake 30 % Low 31-39 76 Thyroxine (T4) 8.8 g/dL 4.7-13.3 76 T7 2.64 g/dL Low 5.0-12.0 76 Thyroid Stim Hormone 1.39 uIU/mL 0.30-4.20 76 Laboratory test finding 05/17/2016 Prealbumin 17.6 mg/dL Low 20.0-40.0 76 CBS W/Automated Diff 03/26/2016 White Blood Count 7.0 K/uL 3.4-10.5 80 Red Blood Count 4.95 M/uL 4.20-5.80 80 Hemoglobin 14.4 gm/dL 12.8-17.0 80 Hematocrit 44.4 % 38.0-48.0 80 Mean Cell Volume 89.7 fl 80.0-96.0 80 Mean Corpuscular HGB 29.1 pg 27.0-33.0 80 Mean Corpuscular HGB Conc 32.4 g/dL 31.7-36.0 80 Platelet Count 267 K/uL 150-400 80 Red Cell Distri Width SD 40.1 fl 36-51 80 Red Cell Distri Width %CV 12.6 % 11.6-15.8 80 Mean Platelet Volume 10.3 fL 6.6-10.6 80 Neut% 72.6 % 33.0-73.0 80 Lymph % 20.6 % 17.0-56.0 80 [place] % 5.2 % 0.0-10.0 80 Eo% 1.3 % 0.0-5.0 80 Bas% 0.3 % 0.1-1.0 80 Neut# 5.05 K/uL 1.8-7.0 80 Lymph # 1.43 K/uL Low 1.8-7.0 80 [place] # 0.36 K/uL 0.0-0.8 80 Eos # 0.09 K/uL 0.0-0.5 80 Baso # 0.02 K/uL Low 0.1-0.2 80 Laboratory test finding 03/26/2016 Slide Review . 80, 81 Clozapine (Clozaril) Serum 03/26/2016 Clozapine,serum 370 ng/mL 350-650 80, 82 Norclozapine,serum 205 ng/mL Not Estab. 80 Total(Cloz+Norcloz) 575 ng/mL . 80, 83 Serum or plasma 03/26/2016 Serum or plasma 370 350-650 clozapine measurement clozapine measurement (mass/volume (mass/volume) Serum or plasma 03/26/2016 Serum or plasma 575 . clozapine+norclozapine clozapine+norclozapine measurement measurement (mass/volume) Serum or plasma 03/26/2016 Serum or plasma 205 Not Estab. norclozapine norclozapine measurement (mass/vol measurement (mass/volume) Unloinc 03/26/2016 Unloinc . Prot Ur 03/22/2016 Prot Ur Strip.auto-mCnc Trace Negative Strip.auto-mCnc Nitrite Ur Ql 03/22/2016 Nitrite Ur Ql Negative Negative Strip.auto Strip.auto Leukocyte esterase Ur 03/22/2016 Leukocyte esterase Ur Negative Negative Ql Strip.auto Ql Strip.auto Epithelial cells 03/22/2016 Epithelial cells Few None Seen [presence] in urine [presence] in urine sediment by l sediment by light microscopy Drug screen comment 03/22/2016 Drug screen comment * [interpretation] in [interpretation] in urine urine Color Ur 03/22/2016 Color Ur Yellow Yellow Bilirub Ur Ql 03/22/2016 Bilirub Ur Ql Moderate High Negative Strip.auto Strip.auto Bacteria [presence] in 03/22/2016 Bacteria [presence] in Very Few None Seen urine sediment by urine sediment by light light bean microscopy Drugs Of Abuse-Urine 03/22/2016 Amphetamines (Urine) Negative 84 Screen 7 Barbiturates (Urine) Negative 84 Benzodiazepines (Urine) Negative 84 Cannabinoids (Urine) Negative 84 Cocaine Metabolite (Urine) Negative 84 Methadone (Urine) Negative 84 Opiates (Urine) Negative 84 Urine Cutoffs * 84, 85 Ua Routine 03/22/2016 Urine Color YELLOW Yellow 84 Urine Clarity CLEAR Clear 84 Urine Glucose - Dipstick NEGATIVE mg/dL Negative 84 Urine Bilirubin - Dipstick MODERATE Negative 84 Urine Ketone >=80 mg/dL High Negative 84 Urine Specific [place] >=1.030 1.010-1.030 84 Urine Blood SMALL Negative 84 Urine PH 5.5 Low 6.5-7.5 84 Urine Protein - Dipstick TRACE mg/dL Negative 84 Urine Urobilinogen - Dipstick 1.0 E.U./dL 0.2-1.0 84 Urine Nitrite - Dipstick NEGATIVE Negative 84 Urine Leuk Esterase NEGATIVE Negative 84 Urine RBC 5-10 rbc/hpf High 0-2 84 Urine WBC 0-2 wbc/hpf 0-7 84 Urine Epithelial Cells FEW /lpf None Seen 84 Urine Bacteria VERY FEW None Seen 84 Urine Hyaline Cast 0-2 #/lpf None Seen 84 Source: URINE, CLEAN CAT <SEE NOTE> 84, 86 Comprehensive Metabolic Panel 03/22/2016 Glucose 124 mg/dL High 74-106 84 BUN 18 mg/dL 7-18 84 Creatinine 1.0 mg/dL 0.6-1.3 84 Glom Filtration Rate, Estimate >60 mL/min >60 84 If >60 mL/min >60 84, 87 BUN/Creat 18.0 ratio 84 Sodium 144 mmol/L 136-145 84 Potassium 3.9 mmol/L 3.5-5.1 84 Chloride 104 mmol/L 98-107 84 Carbon Dioxide 28 mmol/L 21-32 84 Anion Gap 12 mEq/L 8-16 84 Calcium 9.2 mg/dL 8.5-10.1 84 Total Protein 7.4 g/dL 6.4-8.2 84 Albumin 3.7 g/dL 3.4-5.0 84 Globulin 3.7 g/dL 1.9-4.3 84 Alb/Glob 1.0 ratio 84 Bilirubin,Total 0.7 mg/dL 0.2-1.0 84 Sgot/Ast 15 U/L 15-37 84 SGPT/Alt 22 U/L 12-78 84 Alkaline Phosphatase 175 U/L High 45-117 84 Laboratory test finding 03/22/2016 Ethyl Alcohol 5.0 mg/dL 84 CBS W/Automated Diff 03/22/2016 White Blood Count 8.3 K/uL 3.4-10.5 84 Red Blood Count 5.12 M/uL 4.20-5.80 84 Hemoglobin 14.8 gm/dL 12.8-17.0 84 Hematocrit 44.8 % 38.0-48.0 84 Mean Cell Volume 87.5 fl 80.0-96.0 84 Mean Corpuscular HGB 28.9 pg 27.0-33.0 84 Mean Corpuscular HGB Conc 33.0 g/dL 31.7-36.0 84 Platelet Count 237 K/uL 150-400 84 Red Cell Distri Width SD 39.0 fl 36-51 84 Red Cell Distri Width %CV 12.4 % 11.6-15.8 84 Mean Platelet Volume 9.9 fL 6.6-10.6 84 Neut% 80.2 % High 33.0-73.0 84 Lymph % 12.6 % Low 17.0-56.0 84 [place] % 6.4 % 0.0-10.0 84 Eo% 0.6 % 0.0-5.0 84 Bas% 0.2 % 0.1-1.0 84 Neut# 6.66 K/uL 1.8-7.0 84 Lymph # 1.05 K/uL Low 1.8-7.0 84 [place] # 0.53 K/uL 0.0-0.8 84 Eos # 0.05 K/uL 0.0-0.5 84 Baso # 0.02 K/uL Low 0.1-0.2 84 Urine amphetamines 03/22/2016 Urine amphetamines Negative detection by screening detection by screening method method Urine appearance 03/22/2016 Urine appearance Clear Clear determination determination Urine barbiturate 03/22/2016 Urine barbiturate Negative screening test screening test Urine benzodiazepines 03/22/2016 Urine benzodiazepines Negative measurement by screening measurement by met screening method (mass/volume) Urine cannabinoids 03/22/2016 Urine cannabinoids Negative detection by screening detection by screening method method Urine cocaine metabolite 03/22/2016 Urine cocaine Negative screen metabolite screen Urine glucose 03/22/2016 Urine glucose Negative Negative measurement by automated measurement by test strip automated test strip (mass/volume) Urine hemoglobin 03/22/2016 Urine hemoglobin Small High Negative detection by automated detection by automated test strip test strip Urine methadone screen 03/22/2016 Urine methadone screen Negative Urine opiates detection 03/22/2016 Urine opiates detection Negative by screening method by screening method Urobilinogen Ur 03/22/2016 Urobilinogen Ur 1.0 0.2-1.0 Strip-aCnc Strip-aCnc pH Ur Strip.auto 03/22/2016 pH Ur Strip.auto 5.5 Low 6.5-7.5 CBS W/Automated Diff 02/02/2016 White Blood Count 5.3 K/uL 3.4-10.5 88 Red Blood Count 4.67 M/uL 4.20-5.80 88 Hemoglobin 13.7 gm/dL 12.8-17.0 88 Hematocrit 41.3 % 38.0-48.0 88 Mean Cell Volume 88.4 fl 80.0-96.0 88 Mean Corpuscular HGB 29.3 pg 27.0-33.0 88 Mean Corpuscular HGB Conc 33.2 g/dL 31.7-36.0 88 Platelet Count 171 K/uL 150-400 88 Red Cell Distri Width SD 38.8 fl 36-51 88 Red Cell Distri Width %CV 12.4 % 11.6-15.8 88 Mean Platelet Volume 10.9 fL High 6.6-10.6 88 Neut% 66.2 % 33.0-73.0 88 Lymph % 26.6 % 17.0-56.0 88 [place] % 5.5 % 0.0-10.0 88 Eo% 1.5 % 0.0-5.0 88 Bas% 0.2 % 0.1-1.0 88 Neut# 3.51 K/uL 1.8-7.0 88 Lymph # 1.41 K/uL Low 1.8-7.0 88 [place] # 0.29 K/uL 0.0-0.8 88 Eos # 0.08 K/uL 0.0-0.5 88 Baso # 0.01 K/uL Low 0.1-0.2 88 Comprehensive Metabolic Panel 02/02/2016 Glucose 118 mg/dL High 74-106 88 BUN 13 mg/dL 7-18 88 Creatinine 0.9 mg/dL 0.6-1.3 88 Glom Filtration Rate, Estimate >60 mL/min >60 88 If >60 mL/min >60 88, 89 BUN/Creat 14.4 ratio 88 Sodium 143 mmol/L 136-145 88 Potassium 4.1 mmol/L 3.5-5.1 88 Chloride 108 mmol/L High 98-107 88 Carbon Dioxide 33 mmol/L High 21-32 88 Anion Gap 2 mEq/L Low 8-16 88 Calcium 8.5 mg/dL 8.5-10.1 88 Total Protein 6.4 g/dL 6.4-8.2 88 Albumin 3.6 g/dL 3.4-5.0 88 Globulin 2.8 g/dL 1.9-4.3 88 Alb/Glob 1.3 ratio 88 Bilirubin,Total 0.3 mg/dL 0.2-1.0 88 Sgot/Ast 20 U/L 15-37 88 SGPT/Alt 25 U/L 12-78 88 Alkaline Phosphatase 148 U/L High 45-117 88 Glycohemoglobin A1c 02/02/2016 Glycohemoglobin (A1c) 6.2 % 4.2-6.3 88, 90 eAG 131 mg/dL 88 LDL Cholesterol Profile 02/02/2016 Cholesterol 131 mg/dL <200 88, 91 Triglycerides 190 mg/dL High <150 88, 92 HDL Cholesterol 43 mg/dL >40 88, 93 LDL-Cholesterol 50 mg/dL < 100 88, 94 LDLc SerPl Calc-mCnc 02/02/2016 LDLc SerPl Calc-mCnc 50 < 100 Serum or plasma 02/02/2016 Serum or plasma 43 >40 cholesterol in HDL cholesterol in HDL measurement (ma measurement (mass/volume) Serum or plasma 02/02/2016 Serum or plasma 131 <200 cholesterol measurement cholesterol measurement (mass/volu (mass/volume) Serum or plasma 02/02/2016 Serum or plasma 190 High <150 triglyceride triglyceride measurement (mass/vol measurement (mass/volume) LDL Cholesterol Profile 12/28/2015 Cholesterol 140 mg/dL <200 95, 96 Triglycerides 209 mg/dL High <150 95, 97 HDL Cholesterol 45 mg/dL >40 95, 98 LDL-Cholesterol 53 mg/dL < 100 95, 99 @[facility] Pat Id: [id number] 95 @[facility] Req #: [id number] 95 Is Patient Fasting? Fasting 95 Comprehensive Metabolic Panel 12/28/2015 Glucose 129 mg/dL High 74-106 95 BUN 17 mg/dL 7-18 95 Creatinine 1.0 mg/dL 0.6-1.3 95 Glom Filtration Rate, Estimate >60 mL/min >60 95 If >60 mL/min >60 95, 100 BUN/Creat 17.0 ratio 95 Sodium 143 mmol/L 136-145 95 Potassium 4.0 mmol/L 3.5-5.1 95 Chloride 106 mmol/L 98-107 95 Carbon Dioxide 32 mmol/L 21-32 95 Anion Gap 5 mEq/L Low 8-16 95 Calcium 8.8 mg/dL 8.5-10.1 95 Total Protein 6.6 g/dL 6.4-8.2 95 Albumin 3.7 g/dL 3.4-5.0 95 Globulin 2.9 g/dL 1.9-4.3 95 Alb/Glob 1.3 ratio 95 Bilirubin,Total 0.4 mg/dL 0.2-1.0 95 Sgot/Ast 23 U/L 15-37 95 SGPT/Alt 40 U/L 12-78 95 Alkaline Phosphatase 175 U/L High 45-117 95 @[facility] Pat Id: [id number] 95 @[facility] Req #: [id number] 95 Is Patient Fasting? Fasting 95 Laboratory test finding 12/23/2015 Slide Review (SEE NOTE) 101, 102 CBS W/Automated Diff 12/23/2015 White Blood Count 6.9 K/uL 3.4-10.5 101 Red Blood Count 4.89 M/uL 4.20-5.80 101 Hemoglobin 14.6 gm/dL 12.8-17.0 101 Hematocrit 43.7 % 38.0-48.0 101 Mean Cell Volume 89.4 fl 80.0-96.0 101 Mean Corpuscular HGB 29.9 pg 27.0-33.0 101 Mean Corpuscular HGB Conc 33.4 g/dL 31.7-36.0 101 Platelet Count 191 K/uL 150-400 101 Red Cell Distri Width SD 41.0 fl 36-51 101 Red Cell Distri Width %CV 12.7 % 11.6-15.8 101 Mean Platelet Volume 11.1 fL High 6.6-10.6 101 Neut% 64.1 % 33.0-73.0 101 Lymph % 29.5 % 17.0-56.0 101 [place] % 4.8 % 0.0-10.0 101 Eo% 1.5 % 0.0-5.0 101 Bas% 0.1 % 0.1-1.0 101 Neut# 4.39 K/uL 1.8-7.0 101 Lymph # 2.02 K/uL 1.8-7.0 101 [place] # 0.33 K/uL 0.0-0.8 101 Eos # 0.10 K/uL 0.0-0.5 101 Baso # 0.01 K/uL Low 0.1-0.2 101 CBC W/Automated Diff 11/16/2015 White Blood Count 5.6 K/uL 3.4-10.5 103 Red Blood Count 4.68 M/uL 4.20-5.80 103 Hemoglobin 14.0 gm/dL 12.8-17.0 103 Hematocrit 42.2 % 38.0-48.0 103 Mean Cell Volume 90.2 fl 80.0-96.0 103 Mean Corpuscular HGB 29.9 pg 27.0-33.0 103 Mean Corpuscular HGB Conc 33.2 g/dL 31.7-36.0 103 Platelet Count 158 K/uL 150-400 103 Red Cell Distri Width SD 40.9 fl 36-51 103 Red Cell Distri Width %CV 12.7 % 11.6-15.8 103 Mean Platelet Volume 11.4 fL High 6.6-10.6 103 Neut% 56.8 % 33.0-73.0 103 Lymph % 34.9 % 17.0-56.0 103 [place] % 6.8 % 0.0-10.0 103 Eo% 1.3 % 0.0-5.0 103 Bas% 0.2 % 0.1-1.0 103 Neut# 3.16 K/uL 1.8-7.0 103 Lymph # 1.94 K/uL 1.8-7.0 103 [place] # 0.38 K/uL 0.0-0.8 103 Eos # 0.07 K/uL 0.0-0.5 103 Baso # 0.01 K/uL Low 0.1-0.2 103 Lipid Panel 11/16/2015 Cholesterol 125 mg/dL <200 103, 104 Triglycerides 267 mg/dL High <150 103, 105 HDL Cholesterol 37 mg/dL Low >40 103, 106 LDL-Cholesterol 35 mg/dL < 100 103, 107 CMP Panel (14 Test) 11/16/2015 Glucose 104 mg/dL 74-106 103 BUN 15 mg/dL 7-18 103 Creatinine 1.1 mg/dL 0.6-1.3 103 Glom Filtration Rate, Estimate >60 mL/min >60 103 If >60 mL/min >60 103, 108 BUN/Creat 13.6 ratio 103 Sodium 141 mmol/L 136-145 103 Potassium 4.0 mmol/L 3.5-5.1 103 Chloride 104 mmol/L 98-107 103 Carbon Dioxide 31 mmol/L 21-32 103 Anion Gap 6 mEq/L Low 8-16 103 Calcium 8.9 mg/dL 8.5-10.1 103 Total Protein 6.4 g/dL 6.4-8.2 103 Albumin 3.7 g/dL 3.4-5.0 103 Globulin 2.7 g/dL 1.9-4.3 103 Alb/Glob 1.4 ratio 103 Bilirubin,Total 0.3 mg/dL 0.2-1.0 103 Sgot/Ast 29 U/L 15-37 103 SGPT/Alt 51 U/L 12-78 103 Alkaline Phosphatase 158 U/L High 45-117 103 1 HCAP 2 Note: Persistent reduction for 3 months or more in an eGFR <60 mL/min/1.73 m2 defines CKD. Patients with eGFR values >/=60 mL/min/1.73 m2 may also have CKD if evidence of persistent proteinuria is present. The original MDRD equation for estimated GFR is not valid for patients less than 18 years of age. Additional information may be found at [email or web address]. 3 NO GROWTH: FINAL REPORT 4 NO GROWTH: FINAL REPORT 5 NO GROWTH: FINAL REPORT 6 NO GROWTH: FINAL REPORT 7 PNEUMONIA?, FEVER 8 URINE, CLEAN CATCH 9 F20.9 10 R73.9 11 Elevated levels of HbA1c suggest the need for more aggressive treatment of glycemia. The [place] [employer] recommends that a primary goal of therapy should be a HbA1c of <7% and that physicians should re-evaluate the treatment regimen in patients with HbA1c values consistently >8%. 12 SENT BY FOR EVAL HAS EPISODE OF SOB WHEN RUSHED 13 0.0 - 0.045 ng/mL: Normal 0.046 - 0.5 ng/mL: Suggestive 0.6 - 1.5 ng/mL: Consistent 14 Specimen slightly Hemolyzed, interpret with caution 15 Specimen slightly Hemolyzed, interpret with caution 16 Note: Persistent reduction for 3 months or more in an eGFR <60 mL/min/1.73 m2 defines CKD. Patients with eGFR values >/=60 mL/min/1.73 m2 may also have CKD if evidence of persistent proteinuria is present. The original MDRD equation for estimated GFR is not valid for patients less than 18 years of age. Additional information may be found at [email or web address]. 17 0.0 - 0.045 ng/mL: Normal 0.046 - 0.5 ng/mL: Suggestive 0.6 - 1.5 ng/mL: Consistent 18 Instrument flagged sample for slide review. Less than 10% Bands seen, no other immature WBC's seen. RBC morphology essentially normal. Platelet estimate=NORMAL 19 Tests: magnesium, please and thank you Instructions: 20 magnesium, please and thank you 21 Z00.01 R73.9 22 Reference Guidelines*: Desirable: ........... < 200 mg/dL Borderline High: ..... 200-239 mg/dL High: ................ >=240 mg/dL * The National Cholesterol Education Program (NCEP) 23 Reference Guidelines*: Normal: ............. < 150 mg/dL Borderline High: .... 150-199 mg/dL High: ............... 200-499 mg/dL Very High: .......... > 500 mg/dL * Source: National Cholesterol Education Program (NCEP) 24 Reference Guidelines*: Low HDL: ..... < 40 mg/dL Normal: ..... 40-60 mg/dL Desirable: ... > 60 mg/dL *The National Cholesterol Education Program(NCEP) 25 Reference Guidelines*: Optimal:........... <100 mg/dL Near Optimal....... 100-129 mg/dL Borderline High.... 130-159 mg/dL High............... 160-189 mg/dL Very High.......... >=190 mg/dL * Source: National Cholesterol Education Program (NCEP) 26 Note: Persistent reduction for 3 months or more in an eGFR <60 mL/min/1.73 m2 defines CKD. Patients with eGFR values >/=60 mL/min/1.73 m2 may also have CKD if evidence of persistent proteinuria is present. The original MDRD equation for estimated GFR is not valid for patients less than 18 years of age. Additional information may be found at [email or web address]. 27 Elevated levels of HbA1c suggest the need for more aggressive treatment of glycemia. The [place] [employer] recommends that a primary goal of therapy should be a HbA1c of <7% and that physicians should re-evaluate the treatment regimen in patients with HbA1c values consistently >8%. 28 R60.0 29 Note: Persistent reduction for 3 months or more in an eGFR <60 mL/min/1.73 m2 defines CKD. Patients with eGFR values >/=60 mL/min/1.73 m2 may also have CKD if evidence of persistent proteinuria is present. The original MDRD equation for estimated GFR is not valid for patients less than 18 years of age. Additional information may be found at [email or web address]. 30 Z13.1,R73.9 31 Elevated levels of HbA1c suggest the need for more aggressive treatment of glycemia. The [place] [employer] recommends that a primary goal of therapy should be a HbA1c of <7% and that physicians should re-evaluate the treatment regimen in patients with HbA1c values consistently >8%. 32 R60.9 33 Note: Persistent reduction for 3 months or more in an eGFR <60 mL/min/1.73 m2 defines CKD. Patients with eGFR values >/=60 mL/min/1.73 m2 may also have CKD if evidence of persistent proteinuria is present. The original MDRD equation for estimated GFR is not valid for patients less than 18 years of age. Additional information may be found at [email or web address]. 34 Note: Persistent reduction for 3 months or more in an eGFR <60 mL/min/1.73 m2 defines CKD. Patients with eGFR values >/=60 mL/min/1.73 m2 may also have CKD if evidence of persistent proteinuria is present. The original MDRD equation for estimated GFR is not valid for patients less than 18 years of age. Additional information may be found at [email or web address]. 35 abdominal pain 36 URINE, CLEAN CATCH 37 Note: Persistent reduction for 3 months or more in an eGFR <60 mL/min/1.73 m2 defines CKD. Patients with eGFR values >/=60 mL/min/1.73 m2 may also have CKD if evidence of persistent proteinuria is present. The original MDRD equation for estimated GFR is not valid for patients less than 18 years of age. Additional information may be found at [email or web address]. 38 14:00 07/03/16 39 Note: Persistent reduction for 3 months or more in an eGFR <60 mL/min/1.73 m2 defines CKD. Patients with eGFR values >/=60 mL/min/1.73 m2 may also have CKD if evidence of persistent proteinuria is present. The original MDRD equation for estimated GFR is not valid for patients less than 18 years of age. Additional information may be found at [email or web address]. 40 Note: Persistent reduction for 3 months or more in an eGFR <60 mL/min/1.73 m2 defines CKD. Patients with eGFR values >/=60 mL/min/1.73 m2 may also have CKD if evidence of persistent proteinuria is present. The original MDRD equation for estimated GFR is not valid for patients less than 18 years of age. Additional information may be found at [email or web address]. 41 NO GROWTH: FINAL REPORT 42 NO GROWTH: FINAL REPORT [address] [facility] 07/05 [id number] 44 THERAPEUTIC INR RANGE: 2.0 - 3.0 DVT, Pulmonary embolus, prophylaxis against venous thrombosis or systemic embolization in high risk patients. 2.5 - 3.5 Mechanical heart valves 45 Is patient on heparin protocol? N Is patient on anticoagulants? Unknown 46 Note: Persistent reduction for 3 months or more in an eGFR <60 mL/min/1.73 m2 defines CKD. Patients with eGFR values >/=60 mL/min/1.73 m2 may also have CKD if evidence of persistent proteinuria is present. The original MDRD equation for estimated GFR is not valid for patients less than 18 years of age. Additional information may be found at [email or web address]. 47 PSYCH SERVICES 48 Instrument flagged sample for slide review. Less than 10% Bands seen, no other immature WBC's seen. Platelet estimate=NORMAL 49 Note: Persistent reduction for 3 months or more in an eGFR <60 mL/min/1.73 m2 defines CKD. Patients with eGFR values >/=60 mL/min/1.73 m2 may also have CKD if evidence of persistent proteinuria is present. The original MDRD equation for estimated GFR is not valid for patients less than 18 years of age. Additional information may be found at [email or web address]. 50 Reference Guidelines*: Desirable: ........... < 200 mg/dL Borderline High: ..... 200-239 mg/dL High: ................ >=240 mg/dL * The National Cholesterol Education Program (NCEP) 51 Reference Guidelines*: Normal: ............. < 150 mg/dL Borderline High: .... 150-199 mg/dL High: ............... 200-499 mg/dL Very High: .......... > 500 mg/dL * Source: National Cholesterol Education Program (NCEP) 52 Reference Guidelines*: Low HDL: ..... < 40 mg/dL Normal: ..... 40-60 mg/dL Desirable: ... > 60 mg/dL *The National Cholesterol Education Program(NCEP) 53 Reference Guidelines*: Optimal:........... <100 mg/dL Near Optimal....... 100-129 mg/dL Borderline High.... 130-159 mg/dL High............... 160-189 mg/dL Very High.......... >=190 mg/dL * Source: National Cholesterol Education Program (NCEP) 54 Please Note: A nonreactive test result does not exclude the possibility of exposure to, or infection with syphilis. T. pallidum antibodies may be undetectable in some stages of the infection and in some clinical conditions. 55 PT'S PHYSICIAN RECOMMENDED A PSYCH EVAL 56 URINE, CLEAN CATCH 57 URINE SPECIMENS ARE SCREENED AT THE LISTED CUTOFFS DRUG CLASS INITIAL TEST LEVEL Amphetamines 1000 ng/mL Barbiturates 200 ng/mL Benzodiazepines 200 ng/mL Cannabinoids 50 ng/mL Cocaine Metabolite 300 ng/mL Methadone 300 ng/mL Opiates 300 ng/mL Any PRESUMPTIVE POSITIVE findings are UNCONFIRMED. Confirmatory testing is suggested if findings are unexpected. Please contact laboratory if confirmatory testing is desired. SPECIMENS ARE HELD FOR 72 HOURS. 58 Note: Persistent reduction for 3 months or more in an eGFR <60 mL/min/1.73 m2 defines CKD. Patients with eGFR values >/=60 mL/min/1.73 m2 may also have CKD if evidence of persistent proteinuria is present. The original MDRD equation for estimated GFR is not valid for patients less than 18 years of age. Additional information may be found at [email or web address]. 59 Reference Guidelines*: Desirable: ........... < 200 mg/dL Borderline High: ..... 200-239 mg/dL High: ................ >=240 mg/dL * The National Cholesterol Education Program (NCEP) 60 Reference Guidelines*: Normal: ............. < 150 mg/dL Borderline High: .... 150-199 mg/dL High: ............... 200-499 mg/dL Very High: .......... > 500 mg/dL * Source: National Cholesterol Education Program (NCEP) 61 Reference Guidelines*: Low HDL: ..... < 40 mg/dL Normal: ..... 40-60 mg/dL Desirable: ... > 60 mg/dL *The National Cholesterol Education Program(NCEP) 62 Reference Guidelines*: Optimal:........... <100 mg/dL Near Optimal....... 100-129 mg/dL Borderline High.... 130-159 mg/dL High............... 160-189 mg/dL Very High.......... >=190 mg/dL * Source: National Cholesterol Education Program (NCEP) 63 Note: Persistent reduction for 3 months or more in an eGFR <60 mL/min/1.73 m2 defines CKD. Patients with eGFR values >/=60 mL/min/1.73 m2 may also have CKD if evidence of persistent proteinuria is present. The original MDRD equation for estimated GFR is not valid for patients less than 18 years of age. Additional information may be found at [email or web address]. 64 CBD DILATATION 65 Tests: lft Instructions: 66 Note: Persistent reduction for 3 months or more in an eGFR <60 mL/min/1.73 m2 defines CKD. Patients with eGFR values >/=60 mL/min/1.73 m2 may also have CKD if evidence of persistent proteinuria is present. The original MDRD equation for estimated GFR is not valid for patients less than 18 years of age. Additional information may be found at [email or web address]. 67 Note: Persistent reduction for 3 months or more in an eGFR <60 mL/min/1.73 m2 defines CKD. Patients with eGFR values >/=60 mL/min/1.73 m2 may also have CKD if evidence of persistent proteinuria is present. The original MDRD equation for estimated GFR is not valid for patients less than 18 years of age. Additional information may be found at [email or web address]. [address] LÓPEZ AFTER LABS AND US 69 Note: Persistent reduction for 3 months or more in an eGFR <60 mL/min/1.73 m2 defines CKD. Patients with eGFR values >/=60 mL/min/1.73 m2 may also have CKD if evidence of persistent proteinuria is present. The original MDRD equation for estimated GFR is not valid for patients less than 18 years of age. Additional information may be found at [email or web address]. 70 CBD DILATATION 71 NO GROWTH: FINAL REPORT 72 NO GROWTH: FINAL REPORT 73 NO GROWTH: FINAL REPORT 74 NO GROWTH: FINAL REPORT 75 THERAPEUTIC INR RANGE: 2.0 - 3.0 DVT, Pulmonary embolus, prophylaxis against venous thrombosis or systemic embolization in high risk patients. 2.5 - 3.5 Mechanical heart valves 76 R63.4 77 Elevated levels of HbA1c suggest the need for more aggressive treatment of glycemia. The [place] [employer] recommends that a primary goal of therapy should be a HbA1c of <7% and that physicians should re-evaluate the treatment regimen in patients with HbA1c values consistently >8%. 78 [place] ECLIA methodology Values obtained with different assay methods or kits cannot be used interchangeably. Results cannot be interpreted as absolute evidence of the presence or absence of malignant disease. Performed at: [facility] [id number] [place]: Rosario Barone MD, Phone: [phone] 79 Non-smokers ..... 0.0-3.0 ng/mL Smokers ......... 0.0-5.0 ng/mL THIS ASSAY IS NOT INTENDED A CANCER SCREENING TEST The concentration of CEA in a given specimen, determined with assays from different manufacturers, can vary due to differences in assay methods and reagent specificity. Values obtained from different assay methods cannot be used interchangeably. Method: Siemens Dimension [place] Chemiluminescent Immunoassay 80 F20.9 81 Instrument flagged sample for slide review. Less than 10% Bands seen, no other immature WBC's seen. RBC morphology essentially normal. Platelet estimate=NORMAL 82 Please note reference interval change 83 Patients dosed with 400 mg clozapine daily for 4 weeks were most likely to exhibit a therapeutic effect when the sum of clozapine and norclozapine concentrations were at least 450 ng/mL. Jackie C, Jeremy P, Alexandra N, et al. [facility] Consensus Guidelines for Therapeutic Drug Monitoring in Psychiatry: Update 2011, Pharmacopsychiatry Dec 2010; 44(6):195-235. Detection Limit=20 Performed at: - [facility] [id number] [place]: Osmany Barksdale MD, Phone: [phone] 84 GENERAL ILLNESS 85 URINE SPECIMENS ARE SCREENED AT THE LISTED CUTOFFS DRUG CLASS INITIAL TEST LEVEL Amphetamines 1000 ng/mL Barbiturates 200 ng/mL Benzodiazepines 200 ng/mL Cannabinoids 50 ng/mL Cocaine Metabolite 300 ng/mL Methadone 300 ng/mL Opiates 300 ng/mL Any PRESUMPTIVE POSITIVE findings are UNCONFIRMED. Confirmatory testing is suggested if findings are unexpected. Please contact laboratory if confirmatory testing is desired. SPECIMENS ARE HELD FOR 72 HOURS. 86 URINE, CLEAN CATCH 87 Note: Persistent reduction for 3 months or more in an eGFR <60 mL/min/1.73 m2 defines CKD. Patients with eGFR values >/=60 mL/min/1.73 m2 may also have CKD if evidence of persistent proteinuria is present. The original MDRD equation for estimated GFR is not valid for patients less than 18 years of age. Additional information may be found at [email or web address]. 88 Z13.1 seen and labs discussed on 02/08/16 89 Note: Persistent reduction for 3 months or more in an eGFR <60 mL/min/1.73 m2 defines CKD. Patients with eGFR values >/=60 mL/min/1.73 m2 may also have CKD if evidence of persistent proteinuria is present. The original MDRD equation for estimated GFR is not valid for patients less than 18 years of age. Additional information may be found at [email or web address]. 90 Elevated levels of HbA1c suggest the need for more aggressive treatment of glycemia. The [place] [employer] recommends that a primary goal of therapy should be a HbA1c of <7% and that physicians should re-evaluate the treatment regimen in patients with HbA1c values consistently >8%. 91 Reference Guidelines*: Desirable: ........... < 200 mg/dL Borderline High: ..... 200-239 mg/dL High: ................ >=240 mg/dL * The National Cholesterol Education Program (NCEP) 92 Reference Guidelines*: Normal: ............. < 150 mg/dL Borderline High: .... 150-199 mg/dL High: ............... 200-499 mg/dL Very High: .......... > 500 mg/dL * Source: National Cholesterol Education Program (NCEP) 93 Reference Guidelines*: Low HDL: ..... < 40 mg/dL Normal: ..... 40-60 mg/dL Desirable: ... > 60 mg/dL *The National Cholesterol Education Program(NCEP) 94 Reference Guidelines*: Optimal:........... <100 mg/dL Near Optimal....... 100-129 mg/dL Borderline High.... 130-159 mg/dL High............... 160-189 mg/dL Very High.......... >=190 mg/dL * Source: National Cholesterol Education Program (NCEP) 95 Z00.00 96 Reference Guidelines*: Desirable: ........... < 200 mg/dL Borderline High: ..... 200-239 mg/dL High: ................ >=240 mg/dL * The National Cholesterol Education Program (NCEP) 97 Reference Guidelines*: Normal: ............. < 150 mg/dL Borderline High: .... 150-199 mg/dL High: ............... 200-499 mg/dL Very High: .......... > 500 mg/dL * Source: National Cholesterol Education Program (NCEP) 98 Reference Guidelines*: Low HDL: ..... < 40 mg/dL Normal: ..... 40-60 mg/dL Desirable: ... > 60 mg/dL *The National Cholesterol Education Program(NCEP) 99 Reference Guidelines*: Optimal:........... <100 mg/dL Near Optimal....... 100-129 mg/dL Borderline High.... 130-159 mg/dL High............... 160-189 mg/dL Very High.......... >=190 mg/dL * Source: National Cholesterol Education Program (NCEP) 100 Note: Persistent reduction for 3 months or more in an eGFR <60 mL/min/1.73 m2 defines CKD. Patients with eGFR values >/=60 mL/min/1.73 m2 may also have CKD if evidence of persistent proteinuria is present. The original MDRD equation for estimated GFR is not valid for patients less than 18 years of age. Additional information may be found at www.kdoqi.org. 101 F20.9 102 Instrument flagged sample for slide review. Less than 10% Bands seen, no other immature WBC's seen. RBC morphology essentially normal. Platelet estimate=NORMAL 103 baseline labs - appt 12/28/15 104 Reference Guidelines*: Desirable: ........... < 200 mg/dL Borderline High: ..... 200-239 mg/dL High: ................ >=240 mg/dL * The National Cholesterol Education Program (NCEP) 105 Reference Guidelines*: Normal: ............. < 150 mg/dL Borderline High: .... 150-199 mg/dL High: ............... 200-499 mg/dL Very High: .......... > 500 mg/dL * Source: National Cholesterol Education Program (NCEP) 106 Reference Guidelines*: Low HDL: ..... < 40 mg/dL Normal: ..... 40-60 mg/dL Desirable: ... > 60 mg/dL *The National Cholesterol Education Program(NCEP) 107 Reference Guidelines*: Optimal:........... <100 mg/dL Near Optimal....... 100-129 mg/dL Borderline High.... 130-159 mg/dL High............... 160-189 mg/dL Very High.......... >=190 mg/dL * Source: National Cholesterol Education Program (NCEP) 108 Note: Persistent reduction for 3 months or more in an eGFR <60 mL/min/1.73 m2 defines CKD. Patients with eGFR values >/=60 mL/min/1.73 m2 may also have CKD if evidence of persistent proteinuria is present. The original MDRD equation for estimated GFR is not valid for patients less than 18 years of age. Additional information may be found at www.kdoqi.org. Procedures Date CPT Code Description Status 08/13/2017 33395 EKG-Tracing And Report Completed 02/12/2017 03459 EKG-Tracing And Report Completed 09/07/2016 04155 Stress Test Interpre And Report Only Completed 09/07/2016 59658 Stress Test Physician Super Only Completed 09/07/2016 81251 Myocardial Imaging Tomographic Multiple Study AT Rest Completed Or Stress 09/04/2016 79197 EKG-Tracing And Report Completed 08/02/2016 51006 Ercp Diagnostic Completed 07/04/2016 93790 Echocardiogram Complete Completed 07/04/2016 07987 Cholecystectomy with cholangiography Completed 07/02/2016 94907 EKG-Tracing And Report Completed 06/29/2016 64938 EKG-Tracing And Report Completed 05/18/2016 20808 Ercp W/ Placement Endoscopic Stent Biliary/Pancreatic Completed Duct Encounters Type Date Location Provider CPT E/M Dx Office Visit 11/25/2017 11:00a [facility] Mary Yuan, [address] J18.9 [facility] L30.9 Z12.11 Office Visit 10/15/2017 2:30p [facility] Mary Tucker [facility] [address] J18.9 J02.9 Office Visit 10/07/2017 10:30a [facility] Mary Yuan [facility] [address] K21.9 R60.9 Office Visit 09/04/2017 8:45a [facility] Mary Yuan [facility] [address] R73.9 R10.9 F20.9 Office Visit 08/13/2017 9:40a [place] [address] I25.10 R60.0 R94.31 I25.5 Office Visit 06/03/2017 8:45a [facility] Mary Yuan [facility] G0439 Z00.01 L30.9 R73.9 F20.9 Z23 Office Visit 02/12/2017 10:45a [place] [address] I25.10 I25.5 I50.42 R60.0 R94.31 Office Visit 12/31/2016 10:00a [facility] Mary Yuan [facility] [address] Z23 R73.9 J06.9 L30.9 Z23 I25.5 D48.5 Office Visit 10/22/2016 11:00a [place] [address] I25.5 I25.10 R60.0 R94.30 Office Visit 09/25/2016 11:30a [place] [address] R94.30 I42.9 R00.1 R60.9 E78.5 Office Visit 09/11/2016 2:15p [place] [address] K80.70 R63.4 L30.8 Office Visit 09/04/2016 1:10p [place] [address] R00.1 I42.9 R60.9 E78.5 Office Visit 08/27/2016 10:00a Family Medicine Mary Yuan, [employer] [address]013 R10.9 D48.5 Office Visit 07/18/2016 11:00a Family Medicine Mary Yuan, [address]8626 R10.9 [employer] Office Visit 07/02/2016 1:45p [place] [address] Z01.818 R00.1 E78.5 Office Visit 06/29/2016 11:00a Family Medicine Mary Yuan, 89408 Z01.818 [employer] K80.80 R94.31 L57.0 Office Visit 06/25/2016 3:00p Surgical Office Ethan Raymundo MD,[facility] [address]1476 K80.51 K80.80 Office Visit 05/29/2016 9:30[place] [address] K80.51 R63.4 Office Visit 05/17/2016 10:00a Family Medicine Mary Yuan, [facility] [address]4873 R63.4 L30.9 R73.9 Office Visit 04/19/2016 8:30[place] [address] R63.4 Office Visit 04/16/2016 11:30a Family Medicine Mary Yuan, [facility] [address]355 R63.4 G31.84 Office Visit 03/26/2016 1:30p Family Medicine Mary Yuan [facility] 83568 R63.4 Z12.11 Office Visit 03/09/2016 1:00p Family Medicine Mary Yuan, 26471 J06.9 [employer] Office Visit 02/08/2016 8:45a Family Medicine Mary Yuan, 29417 L03.116 [employer] M54.9 R73.9 Office Visit 02/02/2016 8:30a Family Medicine Mary Yuan [employer] 78267 L72.3 L03.116 K59.00 Z13.6 Z13.1 Office Visit 12/28/2015 10:00a Family Medicine VarghesevaughnMary [employer] 52303 Z23 Z00.00 G30.8 M54.9 Z23 Office Visit 11/24/2015 9:45a [facility] Mary Yuan FNP [address]4749 M54.9 M54.9 Office Visit 11/16/2015 3:00p [facility] Mary Yuan FNP 30088 G30.8 Plan of Care Future Appointment(s):03/07/2018 9:45 am - Mary Yuan FNP at [facility] Qdjjwljt09/12/2018 10:15 am - Gregorio Hartley MD at Cardiology Alhtxd2112/19/2017 - Ranjit Daily MDK59.00 Constipation, unspecifiedComments:no stool in the vaultheme rrujkeefP14.4 Abnormal weight lossComments:patient is up in weight from 178to 193patient to follow with pmd for chest xray
--- OUTSIDE RECORDS SUMMARY | 2017-12-21 13:08 | XMS REPORT ---
:1945 External Reference #:[id number] Author Organization [facility] Address [address], [address] [place] [address] Phone [phone] Care Team Providers Name Role Phone Mary Yuan NP Care Team Information Learning Support Teacher Unavailable Mary Yuan NP Primary Care Physician Unavailable Payers Type Date Identification Numbers Payment Provider Subscriber Medicare Primary Policy Number: [id number] Medicare David Suh PayID: [id number] [address] [place] [address] Medicaid Policy Number: [id number] Medicaid David Suh PayID: [id number] [address] [place] [address] Problems Date Description Provider Status Onset: 01/11/2016 Schizophrenia ARELI Raymond Active Note: Document: 12/30/15 - Consult Mental Health Onset: 07/02/2016 Mixed hyperlipidemia Gregorio Hartley MD Active Onset: 02/22/2016 Hyperglycemia ARELI Raymond Active Note: A1C 6.2 02/2016 Onset: 12/31/2016 Actinic keratosis ARELI Raymond Active Note: Document: 01/16/17 - Consult Dermatology Onset: 12/31/2016 Seborrheic dermatitis ARELI Raymond Active Note: Document: 01/16/17 - Consult Dermatology Onset: 12/31/2016 Chronic ischemic heart disease ARELI Raymond Active Onset: 06/25/2016 Calculus of bile duct with Ethan Raymundo MD,FACS Resolved obstruction Resolved: 06/07/2017 Onset: 06/25/2016 Gallstone Ethan Raymundo MD,FACS Resolved Resolved: 06/07/2017 Onset: 07/18/2016 Gallbladder and bile duct calculi Ethan Raymundo MD,FACS Resolved Resolved: 06/07/2017 Family History Date Family Member(s) Problem(s) Comments Father due to Colon Cancer () - diagnosed age 88 Mother Heart Disease Mother Kidney Cancer Social History Type Date Description Comments Marital Status Lives With Lives in halfway Home Environment Lives In Adult Home [place] Diet Patient follows no dietary no concentrated sweets restrictions Work Status Retired ETOH Use Denies alcohol use Smoking Patient denies history of smoking Recreational Drug Use Denies Drug Use Allergies, Adverse Reactions, Alerts Date Description Reaction Status Severity Comments 11/16/2015 NKDA active Medications Medication Date Status Form Strength Qnty SIG Indications Ordering Provider Ketoconazole 06/14 Active Cream 2% 60gm apply to affected Clune, TALENT REP areas of abdomen twice daily Clotrimazole 05/13 Active Cream 1% 60uni apply to ts the toes Clune, TALENT REP of both feet twice a day, being sure to rub inbetween and under toes. Cerovite 01/18 Active Tablets 90tab Take 1 Mary Senior s Tablet By ARELI Yuan Mouth Daily Aspirin Adult 09/25 Active Tablets 81mg 90tab 1 by mouth R94.[address] conrad every day ARELI Yuan Compression 09/25 Active 2unit 20-30mmhg. R60.9 Mary Stockings s apply ARELI Yuan compressio n stockings daily, remove in the evening. Trazodone HCL 12/29 Active Tablets 50mg take one tablet by mouth every day 1 hour before bedtime *as per Dr. Velasco 's last note Tylenol Extra 12/27 Active Tablets 500mg 50tab 2 tabs by Mary Strength s mouth ARELI Yuan every 4 hours as needed for back pain Clozapine Active Tablets 100mg 60tab 2 tabs by Celine Collins, / s mouth every night at bedtime Escitalopram Active Tablets 5mg 1 tab by Unknown Oxalate / mouth every Docusate Active Capsules 100mg 60cap 2 by [facility] Sodium s every ARELI Yuan night at bedtime Ziprasidone Active Capsules 20mg 1 cap by Unknown HCL / mouth twice a day Bisacodyl Ec Active Tablets 5mg 30tab [address] conrad mouth Kwabena, ARELI every night at bedtime Vesicare Active Tablets 5mg 90tab 1 by mouth Jenferleigh s every day ARELI Yuan Simvastatin Active Tablets 40mg 30tab 1 by mouth Jenferleigh s every day ARELI Yuan Pantoprazole Active Tablets 20mg 90tab 1 by mouth [facility] S[facility] conrad every day ARELI Yuan every morning Amoxicillin/Cl 10/15 Hx Tablets 500-125mg 20tab one [facility]18.9 [facility] ARELI Yuan Potassium - twice a 10/25 day x days Pantoprazole 30 Hx Tablets 20mg 30tab 1 by mouth Mary Tadeo DR conrad every day ARELI Yuan - *in place 10/07 of 40 mg - decreasing to possibly discontinu e Econazole 06/03 Hx Cream 1% 90gm apply thin L30.9 [facility] layer ARELI Yuan - twice 06/14 daily to rash on abdomen Ciclopirox 09/16 Hx Solution 8% podiatry ARELI Yuan - 06/03 Furosemide 09/04 Hx Tablets 20mg 90tab 1 tab by R60.9 Kedar Leavitt /2016 s mouth in Judd Christianson, [facility] 10/07 Potassium 30 Hx Tablets 10Meq 90tab 1 by mouth R60.9 Kedar Myers Julieta JENNIFER conrad every day JENNIFER Christianson M.D., [facility] 10/07 Pantoprazole 07/28 Hx Tablets 40mg 30tab 1 by mouth Mary Tadeo DR conrad every day ARELI Yuan - mdd 1 09/04 Amoxicillin/Cl 05/20 Hx Tablets 875-125mg 10tab Every 12 Unknown avulanate /2016 s Hours x 5 Potassium - days 05/25 Triamcinolone 05/17 Hx Cream 0.1% 60gm apply to L30.9 [facility] Acetonide RT abdomen Clune, TALENT REP - twice a 11/25 day for days Multivitamin 03/26 Hx Tablets 90tab 1 by mouth R63.4 [facility] Adult s daily Clune, TALENT REP - 06/03 Mucinex 03/09 Hx Tablets 600mg 20tab one tab by R63.4 [facility] ER 12HR s mouth Clune, TALENT REP twice a day (for phlegm) use x 10 days Keflex 02/01 Hx Capsules 500mg 20cap one L03.116 [facility] s capsules Clune, TALENT REP - by mouth 02/16 every hours x 10 days Tylenol Extra 11/23 Hx Tablets 500mg 50tab 2 tabs by M54.9 [facility] Strength s mouth Clune, TALENT REP - every 4 12/27 hours needed for back pain Benztropine Hx Tablets 1mg 60tab 1 by [facility] Mesylate / s twice a Clune, TALENT REP - day 12/27 Ziprasidone Hx Capsules 20mg 60cap 1 cap by [facility] HCL /0000 s mouth Clune, TALENT REP - twice a Namenda XR Hx Caps ER 21mg 30cap 1 cap by Jenniferleigh /0000 24HR s mouth Clune, TALENT REP - every day 02/07 Trazodone HCL Hx Tablets 100mg 30tab 1 by mouth Jenniferleigh /0000 s at bedtime Clune, TALENT REP - 01/14 Hydrocodone-Ac Hx Tablets 5-325mg A/D prn Unknown etaminophen / - 06/03 Naftin Hx Cream 2% podiatry Unknown / - 06/03 Immunizations CPT Code Status Date Vaccine Lot # [id number] Given 06/03/2017 Pneumovax Injection [id number] Given 12/31/2016 Pneumococcal Conjugate Vaccine 13 Valent For [id number] Intramuscular Use 82507 Given 12/31/2016 Influenza Vaccine Split Virus Preservative Free Im [id number] Use Q2038 Given 12/28/2015 Influenza Vaccine (Fluzone) Age 3 And Older [id number] Vital Signs Date Vital Result Comment 11/25/2017 BP Systolic 118 mmHg BP Diastolic 72 mmHg Body Temperature 98.8 F Heart Rate 80 /min Respiratory Rate 18 /min Height 65.5 inches 5'5.50" Weight 190.00 lb BMI (Body Mass Index) 31.1 kg/m2 BSA (Body Surface Area) 1.95 m2 Juda body weight in kilograms 63 11/05/2017 BP Systolic Sitting Left Arm 112 mmHg BP Diastolic Sitting Left Arm 66 mmHg Heart Rate 72 /min Respiratory Rate 18 /min Height 65.5 inches 5'5.50" Weight 189.00 lb BMI (Body Mass Index) 31.0 kg/m2 BSA (Body Surface Area) 1.94 m2 Juda body weight in kilograms 63 10/15/2017 BP Systolic 98 mmHg BP Diastolic 58 mmHg Body Temperature 100.0 F Heart Rate 88 /min Respiratory Rate 20 /min Height 65.5 inches 5'5.50" Weight 198.00 lb BMI (Body Mass Index) 32.4 kg/m2 BSA (Body Surface Area) 1.98 m2 Juda body weight in kilograms 63 O2 % BldC Oximetry 91 % 10/07/2017 BP Systolic 116 mmHg BP Diastolic 68 mmHg Body Temperature 97.6 F Heart Rate 83 /min Respiratory Rate 20 /min Height 65.5 inches 5'5.50" Weight 194.00 lb BMI (Body Mass Index) 31.8 kg/m2 BSA (Body Surface Area) 1.96 m2 Juda body weight in kilograms 63 O2 % BldC Oximetry 95 % 09/04/2017 BP Systolic Sitting Left Arm 118 mmHg BP Diastolic Sitting Left Arm 76 mmHg Heart Rate 70 /min Respiratory Rate 18 /min Height 65.5 inches 5'5.50" Weight 191.00 lb BMI (Body Mass Index) 31.3 kg/m2 BSA (Body Surface Area) 1.95 m2 Juda body weight in kilograms 63 08/13/2017 BP Systolic Sitting Left Arm 114 mmHg BP Diastolic Sitting Left Arm 62 mmHg Heart Rate 59 /min Respiratory Rate 16 /min Height 65.5 inches 5'5.50" Weight 189.00 lb BMI (Body Mass Index) 31.0 kg/m2 BSA (Body Surface Area) 1.94 m2 Juda body weight in kilograms 63 06/03/2017 BP Systolic Sitting Left Arm 124 mmHg BP Diastolic Sitting Left Arm 72 mmHg Heart Rate 80 /min Respiratory Rate 18 /min Height 65.5 inches 5'5.50" Weight 190.00 lb BMI (Body Mass Index) 31.1 kg/m2 BSA (Body Surface Area) 1.95 m2 Juda body weight in kilograms 63 02/12/2017 BP Systolic Sitting Left Arm 124 mmHg BP Diastolic Sitting Left Arm 68 mmHg Heart Rate 72 /min Respiratory Rate 16 /min Height 65.5 inches 5'5.50" Weight 186.00 lb BMI (Body Mass Index) 30.5 kg/m2 BSA (Body Surface Area) 1.93 m2 Juda body weight in kilograms 63 12/31/2016 BP Systolic Sitting Left Arm 118 mmHg BP Diastolic Sitting Left Arm 72 mmHg Body Temperature 97.7 F Heart Rate 80 /min Respiratory Rate 18 /min Height 65.5 inches 5'5.50" Weight 191.00 lb BMI (Body Mass Index) 31.3 kg/m2 BSA (Body Surface Area) 1.95 m2 Juda body weight in kilograms 63 10/22/2016 BP Systolic Sitting Left Arm 126 mmHg BP Diastolic Sitting Left Arm 66 mmHg Heart Rate 56 /min Respiratory Rate 18 /min Height 65.5 inches 5'5.50" Juda body weight in kilograms 63 09/25/2016 BP Systolic Sitting Right Arm 108 mmHg BP Diastolic Sitting Right Arm 58 mmHg Heart Rate 55 /min Respiratory Rate 16 /min Height 65.5 inches 5'5.50" Weight 183.00 lb BMI (Body Mass Index) 30.0 kg/m2 BSA (Body Surface Area) 1.92 m2 Juda body weight in kilograms 63 09/11/2016 BP Systolic Sitting Left Arm 110 mmHg BP Diastolic Sitting Left Arm 62 mmHg Heart Rate 62 /min Respiratory Rate 16 /min Height 65.5 inches 5'5.50" Weight 178.00 lb BMI (Body Mass Index) 29.2 kg/m2 BSA (Body Surface Area) 1.89 m2 Juda body weight in kilograms 63 09/04/2016 BP Systolic Sitting Left Arm 120 mmHg BP Diastolic Sitting Left Arm 62 mmHg Heart Rate 56 /min Respiratory Rate 16 /min Height 65.5 inches 5'5.50" Weight 184.00 lb BMI (Body Mass Index) 30.2 kg/m2 BSA (Body Surface Area) 1.92 m2 Juda body weight in kilograms 63 08/27/2016 BP Systolic Sitting Left Arm 122 mmHg BP Diastolic Sitting Left Arm 74 mmHg Heart Rate 70 /min Respiratory Rate 18 /min Height 65.5 inches 5'5.50" Weight 177.00 lb BMI (Body Mass Index) 29.0 kg/m2 BSA (Body Surface Area) 1.89 m2 Juda body weight in kilograms 63 07/18/2016 BP [...] kg/m2 BSA (Body Surface Area) 1.88 m2 Juda body weight in kilograms 63 06/25/2016 BP [...] kg/m2 BSA (Body Surface Area) 1.89 m2 Juda body weight in kilograms 63 04/19/2016 BP [...] kg/m2 BSA (Body Surface Area) 1.91 m2 Juda body weight in kilograms 63 O2 % BldC Oximetry 95 % 03/09/2016 BP Systolic Sitting Left Arm 124 mmHg BP Diastolic Sitting Left Arm 70 mmHg Body Temperature 97.7 F Height 65.5 inches 5'5.50" Weight 196.00 lb BMI (Body Mass Index) 32.1 kg/m2 BSA (Body Surface Area) 1.97 m2 Juda body weight in kilograms 63 02/08/2016 BP [...] kg/m2 BSA (Body Surface Area) 1.93 m2 Juda body weight in kilograms 63 11/16/2015 BP Systolic Sitting Left Arm 134 mmHg BP Diastolic Sitting Left Arm 74 mmHg Body Temperature 98.0 F Heart Rate 60 /min Respiratory Rate 18 /min Height 65.5 inches 5'5.50" Weight 188.25 lb BMI (Body Mass Index) 30.8 kg/m2 BSA (Body Surface Area) 1.94 m2 Juda body weight in kilograms 63 Results Test [...] Lymph % 18.9 % Low 20.0-42.0 7 [place] % 5.5 % 0.0-10.0 7 Eo% 1.2 % 0.0-6.6 7 Bas% 0.1 % 0.0-1.1 7 Neut# 5.11 K/uL 1.8-7.0 7 Lymph # 1.30 K/uL 1.0-4.0 7 [place] # 0.38 K/uL 0.0-0.8 7 Eos # 0.08 K/uL 0.0-0.5 7 Baso # 0.01 K/uL 0.0-0.1 7 Ua RFX Micro & Culture II 11/15/2017 Urine Color YELLOW Yellow 7 Urine Clarity CLEAR Clear 7 Urine Glucose - Dipstick NEGATIVE mg/dL Negative 7 Urine Bilirubin - Dipstick NEGATIVE Negative 7 Urine Ketone NEGATIVE mg/dL Negative 7 Urine Specific [place] 1.010 1.010-1.030 7 Urine Blood NEGATIVE Negative [...] 9 Lymph % 20.9 % 20.0-42.0 9 [place] % 4.9 % 0.0-10.0 9 Eo% 1.8 % 0.0-6.6 9 Bas% 0.2 % 0.0-1.1 9 Neut# 4.54 K/uL 1.8-7.0 9 Lymph # 1.31 K/uL 1.0-4.0 9 [place] # 0.31 K/uL 0.0-0.8 9 Eos # [...] 12 Lymph % 34.8 % 20.0-42.0 12 [place] % 5.8 % 0.0-10.0 12 Eo% 1.9 % 0.0-6.6 12 Bas% 0.2 % 0.0-1.1 12 Neut# 2.65 K/uL 1.8-7.0 12 Lymph # 1.61 K/uL 1.0-4.0 12 [place] # 0.27 K/uL 0.0-0.8 12 Eos # 0.09 K/uL 0.0-0.5 12 Baso # 0.01 K/uL 0.0-0.1 12 Laboratory test finding 07/05/2017 Slide Review (SEE NOTE) 12, 18 Aot Request 07/05/2017 Aot Request Test(s) added , 19 Tests to be added: magnesium, pleas [...] 21 Lymph % 25.1 % 20.0-42.0 21 [place] % 6.3 % 0.0-10.0 21 Eo% 1.3 % 0.0-6.6 21 Bas% 0.3 % 0.0-1.1 21 Neut# 4.50 K/uL 1.8-7.0 21 Lymph # 1.69 K/uL 1.0-4.0 21 [place] # 0.42 K/uL 0.0-0.8 21 Eos # [...] Ketone NEGATIVE mg/dL Negative 35 Urine Specific [place] 1.010 1.010-1.030 35 Urine Blood NEGATIVE Negative [...] Lymph % 9.4 % Low 20.0-42.0 35 [place] % 6.0 % 0.0-10.0 35 Eo% 0.6 % 0.0-6.6 35 Bas% 0.0 % 0.0-1.1 35 Neut# 5.65 K/uL 1.8-7.0 35 Lymph # 0.63 K/uL Low 1.0-4.0 35 [place] # 0.40 K/uL 0.0-0.8 35 Eos # [...] Lymph % 10.2 % Low 20.0-42.0 38 [place] % 4.5 % 0.0-10.0 38 Eo% 0.1 % 0.0-6.6 38 Bas% 0.0 % 0.0-1.1 38 Neut# 7.90 K/uL High 1.8-7.0 38 Lymph # 0.95 K/uL Low 1.0-4.0 38 [place] # 0.42 K/uL 0.0-0.8 38 Eos # [...] 47 Lymph % 31.8 % 20.0-42.0 47 [place] % 6.7 % 0.0-10.0 47 Eo% 3.2 % 0.0-6.6 47 Bas% 0.5 % 0.0-1.1 47 Neut# 2.51 K/uL 1.8-7.0 47 Lymph # 1.38 K/uL 1.0-4.0 47 [place] # 0.29 K/uL 0.0-0.8 47 Eos # 0.14 K/uL 0.0-0.5 47 Baso # 0.02 K/uL 0.0-0.1 47 Laboratory test finding 06/21/2016 Slide Review . 47, 48 RBC Morphology Only 06/21/2016 Poikilocytosis 0-1+ 47 Anisocytosis 0-1+ 47 Microcytosis 0-1+ 47 Elliptocytes 0-1+ 47 [place] Cells 0-1+ 47 CBC 06/15/2016 White Blood [...] Antibody Nonreactive Nonreactive 47 , 54 finding [place] Ua RFX Micro & 06/08/2016 Urine Color YELLOW Yellow 55 Culture II Urine Clarity CLEAR Clear 55 Urine Glucose - Dipstick NEGATIVE mg/dL Negative 55 Urine Bilirubin - Dipstick NEGATIVE Negative 55 Urine Ketone NEGATIVE mg/dL Negative 55 Urine Specific [place] 1.015 1.010-1.030 55 Urine Blood NEGATIVE Negative [...] Lymph % 15.9 % Low 20.0-42.0 55 [place] % 9.6 % 0.0-10.0 55 Eo% 2.9 % 0.0-6.6 55 Bas% 0.2 % 0.0-1.1 55 Neut# 3.96 K/uL 1.8-7.0 55 Lymph # 0.88 K/uL Low 1.0-4.0 55 [place] # 0.53 K/uL 0.0-0.8 55 Eos # [...] % 33.0-73.0 Lymph % 25.7 % 20.0-42.0 [place] % 4.2 % 0.0-10.0 Eo% 1.6 % 0.0-6.6 Bas% 0.2 % 0.0-1.1 Neut# 3.74 K/uL 1.8-7.0 Lymph # 1.41 K/uL 1.0-4.0 [place] # 0.23 K/uL 0.0-0.8 Eos # 0.09 [...] Cell Distri Width SD 40.8 fl 36-51 Red Cell Distri Width %CV 13.0 % 11.6-15.8 68 Mean Platelet Volume 10.6 fL 6.6-10.6 68 Neut% 68.2 % 33.0-73.0 68 Lymph % 24.8 % 20.0-42.0 68 [place] % 5.4 % 0.0-10.0 68 Eo% 1.4 % 0.0-6.6 68 Bas% 0.2 % 0.0-1.1 68 Neut# 3.42 K/uL 1.8-7.0 68 Lymph # 1.24 K/uL 1.0-4.0 68 [place] # 0.27 K/uL 0.0-0.8 68 Eos # [...] A1c MFr Bld 05/17/2016 Hgb A1c MFr d 5.8 4.2-6.3 Blood glucose mean value 05/17/2016 [...] 80 Lymph % 20.6 % 17.0-56.0 80 [place] % 5.2 % 0.0-10.0 80 Eo% 1.3 % 0.0-5.0 80 Bas% 0.3 % 0.1-1.0 80 Neut# 5.05 K/uL 1.8-7.0 80 Lymph # 1.43 K/uL Low 1.8-7.0 80 [place] # 0.36 K/uL 0.0-0.8 80 Eos # [...] >=80 mg/dL High Negative 84 Urine Specific [place] >=1.030 1.010-1.030 84 Urine Blood SMALL Negative [...] Lymph % 12.6 % Low 17.0-56.0 84 [place] % 6.4 % 0.0-10.0 84 Eo% 0.6 % 0.0-5.0 84 Bas% 0.2 % 0.1-1.0 84 Neut# 6.66 K/uL 1.8-7.0 84 Lymph # 1.05 K/uL Low 1.8-7.0 84 [place] # 0.53 K/uL 0.0-0.8 84 Eos # [...] 88 Lymph % 26.6 % 17.0-56.0 88 [place] % 5.5 % 0.0-10.0 88 Eo% 1.5 % 0.0-5.0 88 Bas% 0.2 % 0.1-1.0 88 Neut# 3.51 K/uL 1.8-7.0 88 Lymph # 1.41 K/uL Low 1.8-7.0 88 [place] # 0.29 K/uL 0.0-0.8 88 Eos # [...] LDL-Cholesterol 53 mg/dL < 100 95, 99 @[facility] Pat Id: [id number] 95 @[facility] Re #: [id number] 95 Is Patient Fasting? Fasting 95 Comprehensive [...] Alkaline Phosphatase 175 U/L High 45-117 95 @[facility] Id: [id number] 95 @[facility] Req #: [id number] 95 Is Patient Fasting? Fasting 95 Laboratory [...] 101 Lymph % 29.5 % 17.0-56.0 101 [place] % 4.8 % 0.0-10.0 101 Eo% 1.5 % 0.0-5.0 101 Bas% 0.1 % 0.1-1.0 101 Neut# 4.39 K/uL 1.8-7.0 101 Lymph # 2.02 K/uL 1.8-7.0 101 [place] # 0.33 K/uL 0.0-0.8 101 Eos # [...] 103 Lymph % 34.9 % 17.0-56.0 103 [place] % 6.8 % 0.0-10.0 103 Eo% 1.3 % 0.0-5.0 103 Bas% 0.2 % 0.1-1.0 103 Neut# 3.16 K/uL 1.8-7.0 103 Lymph # 1.94 K/uL 1.8-7.0 103 [place] # 0.38 K/uL 0.0-0.8 103 Eos # [...] for more aggressive treatment of glycemia. The [place] [employer] recommends that a primary goal [...] for more aggressive treatment of glycemia. The [place] [employer] recommends that a primary goal [...] for more aggressive treatment of glycemia. The [place] [employer] recommends that a primary goal [...] REPORT 42 NO GROWTH: FINAL REPORT 43 [facility] 07/05 [id number] 44 THERAPEUTIC INR RANGE: 2.0 - 3.0 [...] for more aggressive treatment of glycemia. The [place] [employer] recommends that a primary goal of therapy should be a HbA1c of <7% and that physicians should re-evaluate the treatment regimen in patients with HbA1c values consistently >8%. 78 [place] ECLIA methodology Values obtained with different assay methods or kits cannot be used interchangeably. Results cannot be interpreted as absolute evidence of the presence or absence of malignant disease. Performed at: RN - [facility] [id number] Heavy Duty Mechanic: Rosario Barone MD, Phone: [phone] Non-smokers ..... 0.0-3.0 ng/mL Smokers ......... 0.0-5.0 ng/mL THIS ASSAY IS NOT INTENDED A CANCER SCREENING TEST The concentration of CEA in a given specimen, determined with assays from different manufacturers, can vary due to differences in assay methods and reagent specificity. Values obtained from different assay methods cannot be used interchangeably. Method: Siemens Marbles: [employer] [place] Chemiluminescent Immunoassay 80 F20.9 81 Instrument flagged [...] C, Jeremy P, Alexandra N, et al. [facility] Consensus Guidelines for Therapeutic Drug Monitoring in Psychiatry: Update 2011, Pharmacopsychiatry Dec 2010; 44(6):195-235. Detection Limit=20 Performed at: [facility] [id number] Heavy Duty Mechanic: Osmany Barksdale MD, Phone: [phone] GENERAL ILLNESS 85 URINE SPECIMENS ARE [...] for more aggressive treatment of glycemia. The [place] [employer] Association recommends that a primary goal [...] Procedures Date CPT Code Description Status 08/13/2017 93802 EKG-Tracing And Report Completed 02/12/2017 98020 EKG-Tracing And Report Completed 09/07/2016 82597 Stress Test Interpre And Report Only Completed 09/07/2016 18449 Stress Test Physician Super Only Completed 09/07/2016 33839 Myocardial Imaging Tomographic Multiple Study AT Rest Completed Or Stress 09/04/2016 39771 EKG-Tracing And Report Completed 08/02/2016 20657 Ercp Diagnostic Completed 07/04/2016 28366 Echocardiogram Complete Completed 07/04/2016 96542 Cholecystectomy with cholangiography Completed 07/02/2016 84077 EKG-Tracing And Report Completed 06/29/2016 80141 EKG-Tracing And Report Completed 05/18/2016 14027 Ercp W/ Placement Endoscopic Stent Biliary/Pancreatic Completed Duct Encounters Type Date Location Provider CPT E/M Dx Office Visit 11/25/2017 11:00a Family Medicine Mary Yuan TALENT REP 36428 J18.9 L30.9 Z12.11 Office Visit 10/07/2017 10:30a [facility] ARELI Raymond 35146 K21.9 R60.9 Office Visit 09/04/2017 8:45a Family Medicine ARELI Raymond 80345 R73.9 R10.9 F20.9 Office Visit 08/13/2017 9:40a Cardiology Office JERRICA Vázquez 31678 I25.10 R60.0 R94.31 I25.5 Office Visit 06/03/2017 8:45a Family Medicine Mary Yuan [facility] G0439 Z00.01 L30.9 R73.9 F20.9 Z23 Office Visit 02/12/2017 10:45a [place] [address] I25.10 I25.5 I50.42 R60.0 R94.31 Office Visit 12/31/2016 10:00a Family Medicine Mary Kwabena [facility] 63066 Z23 R73.9 J06.9 L30.9 Z23 I25.5 D48.5 Office Visit 10/22/2016 11:00a [place] [address] I25.5 I25.10 R60.0 R94.30 Office Visit 09/25/2016 11:30a Cardiology Office JERRICA Vázquez 80986 R94.30 I42.9 R00.1 R60.9 E78.5 Office Visit 09/11/2016 2:15p [place] [address] K80.70 R63.4 L30.8 Office Visit 09/04/2016 1:10p Cardiology Office JERRICA Vázquez 03316 R00.1 I42.9 R60.9 E78.5 Office Visit 08/27/2016 10:00a Family Medicine Mary Kwongvaughn [facility] 94112 R10.9 D48.5 Office Visit 07/18/2016 11:00a [facility] Ebonianson Kwabena 35843 R10.9 [facility] Office Visit 07/02/2016 1:45p [place] [address] Z01.818 R00.1 E78.5 Office Visit 06/29/2016 11:00a [facility] Mary Kwongvaughn [facility] 66094 Z01.818 K80.80 R94.31 L57.0 Office Visit 06/25/2016 3:00p Surgical Office Ethan Raymundo MD,FACS 61880 K80.51 K80.80 Office Visit 05/29/2016 9:30[place] [address] K80.51 R63.4 Office Visit 05/17/2016 10:00a Family Medicine Mary Yuan, [facility] 24091 R63.4 L30.9 R73.9 Office Visit 04/19/2016 8:30[place] [address] R63.4 Office Visit 04/16/2016 11:30a Family Medicine Mary Yuan, [facility] 72197 R63.4 G31.84 Office Visit 03/26/2016 1:30p Family Medicine Mary Yuan, [facility] 97704 R63.4 Z12.11 Office Visit 03/09/2016 1:00p Family Medicine Mary Yuan, [facility] 00077 J06.9 Office Visit 02/08/2016 8:45a Family Medicine Mary Yuan, [facility] 80173 L03.116 M54.9 R73.9 Office Visit 02/02/2016 8:30a Family Medicine Mary Yuan, [facility] 86888 L72.3 L03.116 K59.00 Z13.6 Z13.1 Office Visit 12/28/2015 10:00a Family Medicine Mary Yuan, [facility] 44339 Z23 Z00.00 G30.8 M54.9 Z23 Office Visit 11/24/2015 9:45a Family Medicine Mary Yuan, [facility] 81857 M54.9 M54.9 Office Visit 11/16/2015 3:00p Family Medicine Mary Yuan, TALENT REP 88252 G30.8 Plan of Care Future Appointment(s):12/05/2017 9:45 am - Ranjit Daily MD at GI03/07/2018 9:45 am - ARELI Raymond at Family Rtjetqcg49/12/2018 10:15 am - Gregorio Hartley MD at Cardiology Office
[2017-12-21 13:19] VITALS: BP 138/79
--- NOTE | 2017-12-21 13:53 | RAD ---
INDICATION: Low saturation, history of pneumonia. COMPARISON: There are no relevant prior studies available for comparison. TECHNIQUE: Dual-energy PA and lateral views of the chest were obtained. FINDINGS: The heart is within normal limits in size. Mediastinal and hilar contours appear within normal limits. The lungs are slightly hyperinflated and clear. No pleural effusion is seen. IMPRESSION: NO EVIDENCE FOR ACTIVE CARDIOPULMONARY DISEASE.
--- NOTE | 2017-12-21 15:09 | UC ---
Abdominal Pain Male HPI - HPI Summary HPI Summary: patient is on clozaril for chronic Schizophrenia. [facility] and attends an adult day care. today he had an episode of vomiting after eating. He does not feel hungry. He reports last BM was over 1 week ago-- - History of Current Complaint Chief Complaint: UCGeneralIllness Stated Complaint: COUGHING/NAUSEA Time Seen by Provider: 12/21/17 15:09 Hx Obtained From: Patient, Family/Stoker Installer, Medical Records Hx From Patient Unobtainable Due To: Dementia Onset/Duration: Sudden Onset Timing: Constant Severity Initially: Moderate Severity Currently: Moderate Location: Discrete At: LLQ Radiates: No Character: Unable to describe Aggravating Factor(s): Food Alleviating Factor(s): Other - npo Associated Signs And Symptoms: Positive: Constipation, Decreased Appetite, Nausea, Vomiting - Allergies/Home Medications Allergies/Adverse Reactions: Allergies Allergy/AdvReac Type Severity Reaction Status Date / Time No Known Allergies Allergy Verified 12/21/17 13:49 Home Medications: Home Medications Albuterol HFA INHALER* [Ventolin HFA Inhaler*] 2 puff INH Q4H PRN 12/21/17 [ History Confirmed 12/21/17] Aspirin [Aspir-Low] 81 mg PO DAILY 12/21/17 [History Confirmed 12/21/17] Bisacodyl SUPP* [Dulcolax Supp*] 5 mg PO BEDTIME 12/21/17 [History Confirmed ] Clotrimazole 1% CREAM* [Clotrimazole 1%*] 1 applic TOPICAL BID 12/21/17 [ History Confirmed 12/21/17] Docusate CAP* [Colace Cap*] 200 mg PO BEDTIME 12/21/17 [History Confirmed ] Escitalopram Oxalate [Lexapro] 5 mg PO DAILY 12/21/17 [History Confirmed ] Ketoconazole 2 % CREAM (NF) [Nizoral 2% CREAM (NF)] 1 applic TOPICAL BID [History Confirmed 12/21/17] Pantoprazole TAB (NF) [Protonix TAB (NF)] 20 mg PO DAILY 12/21/17 [History Confirmed 12/21/17] Pedi Multivit 158/Iron/Vit K1 [Cerovite Jr Tablet Chew] 1 each PO DAILY [History Confirmed 12/21/17] Simvastatin [Zocor] 40 mg PO DAILY 12/21/17 [History Confirmed 12/21/17] Solifenacin Succinate [Vesicare] 5 mg PO DAILY 12/21/17 [History Confirmed 12/21] Ziprasidone HCl [Geodon] 20 mg PO BID 12/21/17 [History Confirmed 12/21/17] cloZAPine [Clozapine] 100 mg PO BEDTIME 12/21/17 [History Confirmed 12/21/17] traZODone TAB* [Desyrel TAB*] 50 mg PO BEDTIME 12/21/17 [History Confirmed 12/21] PMH/Surg Hx/FS Hx/Imm Hx Previously Healthy: No GI/ History: Gastroesophageal Reflux Psychological History: Schizophrenia - Surgical History Surgical History: Yes Surgery Procedure, Year, and Place: Cholecystectomy - Family History Known Family History: Positive: None - Social History Occupation: Disabled Lives: [place] Alcohol Use: None Substance Use Type: None Smoking Status (MU): Never Smoked Tobacco Review of Systems Constitutional: Negative Skin: Negative Eyes: Negative ENT: Negative Respiratory: Cough Cardiovascular: Negative Gastrointestinal: Abdominal Pain, Vomiting Genitourinary: Negative Motor: Negative Neurovascular: Negative Musculoskeletal: Negative Neurological: Negative Psychological: Negative Is Patient Immunocompromised?: No All Other Systems Reviewed And Are Negative: Yes Physical Exam Triage Information Reviewed: Yes Appearance: Well-Nourished, Ill-Appearing - mild, Pain Distress - mild Vital Signs: Initial Vital Signs Temp 98.3 F 12/21/17 13:10 Pulse 80 12/21/17 13:10 Resp 18 12/21/17 13:10 BP 138/79 12/21/17 13:10 Pulse Ox 94 12/21/17 13:10 Vital Signs Reviewed: Yes Eye Exam: Normal Eyes: Positive: Conjunctiva Clear ENT Exam: Normal ENT: Positive: Normal ENT inspection, Hearing grossly normal, Pharynx normal, TMs normal, Uvula midline. Negative: Nasal congestion, Trismus, Muffled voice, Hoarse voice, Sinus tenderness Dental Exam: Normal Neck exam: Normal Neck: Positive: Supple, Nontender, No Lymphadenopathy Respiratory Exam: Normal Respiratory: Positive: Chest non-tender, Normal breath sounds, No respiratory distress, No accessory muscle use, Wheezing - right lower lobe Cardiovascular Exam: Normal Cardiovascular: Positive: RRR, No Murmur, Pulses Normal, Brisk Capillary Refill Abdominal Exam: Other Abdomen Description: Positive: No Organomegaly, Distended, Other: - tender-- left side of abdomen. Negative: CVA Tenderness (R), CVA Tenderness (L), McBurney's Point Tenderness Bowel Sounds: Positive: Present Musculoskeletal Exam: Normal Musculoskeletal: Positive: Strength Intact, ROM Intact, No Edema, Edema @ - bilateral peripheral---teds stockings on, Other: - kyphosis Neurological Exam: Normal Neurological: Positive: Alert Psychological Exam: Normal Psychological: Positive: Normal Response To Family Skin Exam: Normal Diagnostics - Radiology No standard instances Xray Interpretation: No Acute Changes Radiology Interpretation Completed By: ED Physician, Radiologist - Patient Name : SHOAIB BAUTISTA Medical Record#: [id number] Ordering Physician: Betty Robertson NP Acct.#: [id number] : 1945 Age: 72 Sex: M Location: [facility] Exam Date : 12/21/17 1323 ADM Status: REG ER Order Information: CHEST PA & LAT 2 VWS Accession Number: [id number] CPT : 91634 INDICATION: Low saturation, history of pneumonia. COMPARISON: There are no relevant prior studies available for comparison. TECHNIQUE: Dual-energy PA and lateral views of the chest were obtained. FINDINGS: The heart is within normal limits in size. Mediastinal and hilar contours appear within normal limits. The lungs are slightly hyperinflated and clear. No pleural effusion is seen. IMPRESSION: NO EVIDENCE FOR ACTIVE CARDIOPULMONARY DISEASE. <Electronically signed by Isac Nair MD in OV > 12/21/17 1350 Dictated By: Isac Nair MD Dictated Date/Time: 12/21/17 1350 Transcribed Date/Time: 12/21/17 1348 Copy to: CC:[facility]; Betty Robertson WATCH INSPECTOR [employer]; Mary Yuan [facility] [address] [address] ph [phone]) ph ([phone]) ph ([phone]) This report is only to be considered final once signed by the Provider(s) as displayed in the "<Electronically Signed by >" field (s). Absence of a signature indicates the report is in a draft status and still needs to be finalized. In the event this document was created by someone other than the signing Provider, the individual initiating the document will be listed in the "Entered by:" or "Dictated by:" [place]. 1 of 1 Abd Pain Male Course/Dx - Course Course Of Treatment: continue NPO to ED for lab studies and further evaluation of symptoms - Differential Dx/Clinical Impression Provider Diagnoses: acute vomiting and constipation - Physician Notification/Consults Time Discussed With Above Provider: 15:30 - Sabine Bacon Discharge - Sign-Out/Discharge Documenting (check all that apply): Patient Departure All imaging exams completed and their final reports reviewed: Yes - Discharge Plan Condition: Fair Disposition: HOME-RECOMMEND TO ED Referrals: Luanne Yuan, ELLEN [Primary Care Provider] - Additional Instructions: Nothing to eat or drink---To [facility] ED for further evaluation of abdomen pain and vomiting - Billing Disposition and Condition Condition: FAIR Disposition: Home-Recommend to ED
== END 2017-12-21 15:32 | disposition home health service (06) ==
LOC: UCCORT 12:50
DX: R11.10 Vomiting, unspecified (principal); F20.9 Schizophrenia, unspecified; K21.9 Gastro-esophageal reflux disease without esophagitis; K59.00 Constipation, unspecified
CPT/HCPCS: 71046; 99202; G0463